=== PATIENT | male | born 1975 | race Caucasian/White ===

== ENCOUNTER → 2016-07-15 | Outpatient (CLI) | payer OTHER ==
[2016-07-15 15:18] LABS: BLOOD UREA NITROGEN 20 MG/DL (7-18); CREATININE FOR GFR 0.95 MG/DL (0.70-1.30); GLOMERULAR FILTRATION RATE > 60.0 (>60)
== END ==
LOC: M LAB 14:20
PROVIDERS: ATTEND Physical Medicine & Rehabilitation
DX: M54.2 Cervicalgia (principal)

== ENCOUNTER 2016-07-20 10:08 | Outpatient (RCR) | payer OTHER | END 2016-07-28 | LOC: M PT 10:08 | PROVIDERS: ATTEND Physical Medicine & Rehabilitation | DX: Z51.89 Encounter for other specified aftercare (principal); M47.892 Other spondylosis, cervical region ==

== ENCOUNTER 2016-07-23 15:50 | Emergency (ER) | payer OTHER ==
--- NOTE | 2016-07-23 16:59 | EDDOCDS ---
Physician Documentation [facility] Name: Shaan Osorio Age: 41 yrs Sex: Male : 1975 Arrival Date: 07/23/2016 Time: 15:50 Bed Triage 1 Private MD: Disposition: 07/23/16 16:44 Discharged to Home/Self Care. Impression: Low back pain - chronic neck pain. - Condition is Stable. - Discharge Instructions: Chronic Back Pain. - Prescriptions for [place] 5- 325 mg Oral Tablet - take 1 tablet by ORAL route every 6 hours As needed MDD: 4 tabs; 16 tablet. - Medication Reconciliation, Local Pharmacy Hours form. - Follow up: [facility]; When: Call to arrange an appointment; Reason: Wound/Symptom Recheck, Recheck today's complaints, Worsening of conditions, Continuance of care. - Problem is chronic. - Symptoms are unchanged. Historical: - Allergies: No known drug Allergies; - Home Meds: 1. Celebrex 200 mg Oral cap 1 cap once daily (Last dose: 07/23/2016 06:00) 2. Ultram 50 mg Oral tab 1 tab twice a day (Last dose: 07/23/2016 06:00) 3. Flexeril 10 mg oral tab 1 tab 3 times per day as needed (Last dose: 07/22/2016) - PMHx: Asthma; Headaches; Bipolar disorder; - PSHx: Carpal Tunnel Repair- Right; - Social history: Smoking status: Patient uses tobacco products, light tobacco smoker. No barriers to communication noted, The patient speaks fluent [place]. - Family history: Not pertinent. - : The pt / caregiver states he / she is not on anticoagulants. Home medication list is obtained from the patient. - Exposure Risk Screening:: None identified. Vital Signs: 07/23 15:53 BP 142 / 83; Pulse 59; Resp 18; Temp 96.6(O); Pulse Ox 100% ; Weight 83.01 kg / 183.01 elp lbs; Height 6 ft. 3 in. (190.50 cm); Pain 10/10; 15:53 Body Mass Index 22.87 (83.01 kg, 190.50 cm) elp MDM: 16:54 [facility] Payment Agreement was scanned into [employer] and attached to record. valerio 16:55 Financial registration complete. valerio Signatures: Jade Nathan, RN RN kpj Tracy Velásquez,RN RN cj Dmitri Riggs PA-C PAViolette cc10 Jewell Viramontes The chart was reviewed and I authenticate all verbal orders and agree with the evaluation and treatment provided.Attachments: 16:54 [facility] Payment Agreement gjaguila MTDD
--- NOTE | 2016-07-23 16:59 | EDDOCDS ---
Nurse's Notes [facility] Name: Shaan Osorio Age: 41 yrs Sex: Male : 1975 Arrival Date: 07/23/2016 Time: 15:50 Bed Triage 1 Private MD: Diagnosis: Low back pain-chronic neck pain Presentation: 07/23 15:56 Presenting complaint: Patient states: has left and left shoulder pain was seen at [facility] 2 days ago had nerve conduction test done left neck and shoulder, since then pain has increased. Pt called ortho and they refused to give him anything else for pain just tramadol BID and celebrex. Risk Factors No acute neurological deficit is noted. Adult Sepsis Screening: The patient does not have new or worsening altered mentation. Patient's respiratory rate is less than 22. Systolic blood pressure is greater than 100. Patient has a qSOFA score of 0- Negative Sepsis Screen. Suicide/Homicide risk assessment- the patient denies having any suicidal and/or homicidal ideations and does not present with any other emotional, behavioral or mental health complaints. Status: Patient is not a services delivery driver or dependent. Transition of care: patient was not received from another setting of care. 15:56 Acuity: SCOTT Level 5 [facility] 15:56 Method Of Arrival: Walkin/Carried/Asstd [facility] Triage Assessment: 16:01 General: Appears well nourished, well groomed, Behavior is appropriate for age, kpj pleasant. Pain: Location: left side of neck Pain currently is 10 out of 10 on a pain scale. Pain radiates to anterior aspect of left shoulder. HIV screening NA for this visit Offered previously. Neurological: Level of Consciousness is awake, alert, Oriented to person, place, time. Respiratory: Airway is patent Respiratory effort is even, unlabored, Respiratory pattern is regular, symmetrical. Derm: Skin is pink, warm & dry. Musculoskeletal: Circulation, motion, and sensation intact Reports pain in left side of neck radiation to anterior aspect of left shoulder Pain is 10 out of 10 on a pain scale. Historical: - Allergies: No known drug Allergies; - Home Meds: 1. Celebrex 200 mg Oral cap 1 cap once daily (Last dose: 07/23/2016 06:00) 2. Ultram 50 mg Oral tab 1 tab twice a day (Last dose: 07/23/2016 06:00) 3. Flexeril 10 mg oral tab 1 tab 3 times per day as needed (Last dose: 07/22/2016) - PMHx: Asthma; Headaches; Bipolar disorder; - PSHx: Carpal Tunnel Repair- Right; - Social history: Smoking status: Patient uses tobacco products, light tobacco smoker. No barriers to communication noted, The patient speaks fluent Trinidadian. - Family history: Not pertinent. - : The pt / caregiver states he / she is not on anticoagulants. Home medication list is obtained from the patient. - Exposure Risk Screening:: None identified. Screenin:54 Screening information is obtained from the patient. Fall risk: No risks identified. [facility] Assistance ADL's: requires no assistance with activities of daily living. Abuse/DV Screen: The patient / caregiver reports he/she is: not in a situation that causes fear, pain or injury. Nutritional screening: No deficits noted. Advance Directives: There is no active DNR order. home support is adequate. Assessment: 16:54 General: Appears in no apparent distress, comfortable, Behavior is appropriate for age, [facility] cooperative. Pain: Location: left arm and anterior aspect of left shoulder and left side of neck and neck. Neurological: Level of Consciousness is awake, alert, Oriented to person, place, time, assessed by PA. Neurological: Gait is steady, Speech is normal, Reports no additional symptoms. Respiratory: Airway is patent Respiratory effort is even, unlabored, Respiratory pattern is regular, symmetrical. Derm: Skin is pink, warm & dry. Vital Signs: 15:53 BP 142 / 83; Pulse 59; Resp 18; Temp 96.6(O); Pulse Ox 100% ; Weight 83.01 kg; Height 6 elp ft. 3 in. (190.50 cm); Pain 10/10; 15:53 Body Mass Index 22.87 (83.01 kg, 190.50 cm) [facility] Vitals: 15:53 Log In Time: July 23, 2016 at 15:51. [facility] ED Course: 15:51 Patient visited by Belle Roldan PCA. elp 15:51 Patient moved to Waiting elp 15:53 Patient visited by Belle Roldan PCA. elp 15:54 Patient moved to Pre RCE elp 16:00 Triage Initiated [facility] 16:26 Patient moved to Triage 1 [facility] 16:29 Dmitri Riggs PA-C is [facility]. cc10 16:29 Hanna Montiel MD is Attending Physician. cc10 16:34 Patient visited by Dmitri Riggs PA-C. cc10 16:34 Patient visited by Dmitri Riggs PA-C. cc 16:44 [facility] is Referral Physician. cc 16:54 [facility] Payment Agreement was scanned into [employer] and attached to record. [facility] 16:54 The patient / caregiver is instructed regarding the plan of care and ED course. [facility] 16:54 No IV's were initiated during this patient's visit. No procedures done that require [facility] assistance. Order Results: There are currently no results for this order. Outcome: 16:44 Discharge ordered by Provider. cc10 16:54 Discharge Assessment: Patient awake, alert and oriented x 3. No cognitive and/or [facility] functional deficits noted. Patient verbalized understanding of disposition instructions. patient administered narcotics - no. The following High Risk Discharge criteria are identified: None. Discharged to home ambulatory. Condition: good Condition: stable Condition: improved. Discharge instructions given to patient, Instructed on discharge instructions, follow up and referral plans. medication usage, no driving heavy equipment, no drinking with medication, Demonstrated understanding of instructions, medications, Pt was receptive of discharge instructions/ teaching. Prescriptions given X 1. No special radiology studies were completed. Property :Personal belongings accompany Pt. 16:57 Patient left the ED. [facility] Signatures: Edward Cook RN CASS [facility] Jade Nathan RN RN Tracy MadsenRN CASS [facility] Belle Roldan, CECELIA VIOLIN TEACHER elp Dmitri Riggs PA-C PA-C cc Jewell Viramontes [facility] MTDD
--- NOTE | 2016-07-25 17:58 | EDDOCDS ---
Physician Documentation [facility] Name: Shaan Osorio Age: 41 yrs Sex: Male : 1975 Arrival Date: 07/23/2016 Time: 15:50 Bed Triage 1 Private MD: Disposition: 07/23/16 16:44 Discharged to Home/Self Care. Impression: Low back pain - chronic neck pain. - Condition is Stable. - Discharge Instructions: Chronic Back Pain. - Prescriptions for [place] 5- 325 mg Oral Tablet - take 1 tablet by ORAL route every 6 hours As needed MDD: 4 tabs; 16 tablet. - Medication Reconciliation, Local Pharmacy Hours form. - Follow up: [facility]; When: Call to arrange an appointment; Reason: Wound/Symptom Recheck, Recheck today's complaints, Worsening of conditions, Continuance of care. - Problem is chronic. - Symptoms are unchanged. Historical: - Allergies: No known drug Allergies; - Home Meds: 1. Celebrex 200 mg Oral cap 1 cap once daily (Last dose: 07/23/2016 06:00) 2. Ultram 50 mg Oral tab 1 tab twice a day (Last dose: 07/23/2016 06:00) 3. Flexeril 10 mg oral tab 1 tab 3 times per day as needed (Last dose: 07/22/2016) - PMHx: Asthma; Headaches; Bipolar disorder; - PSHx: Carpal Tunnel Repair- Right; - Social history: Smoking status: Patient uses tobacco products, light tobacco smoker. No barriers to communication noted, The patient speaks fluent Lithuanian. - Family history: Not pertinent. - : The pt / caregiver states he / she is not on anticoagulants. Home medication list is obtained from the patient. - Exposure Risk Screening:: None identified. Vital Signs: 07/23 15:53 BP 142 / 83; Pulse 59; Resp 18; Temp 96.6(O); Pulse Ox 100% ; Weight 83.01 kg / 183.01 elp lbs; Height 6 ft. 3 in. (190.50 cm); Pain 10/10; 15:53 Body Mass Index 22.87 (83.01 kg, 190.50 cm) elp MDM: 16:54 [facility] Payment Agreement was scanned into [employer] and attached to record. valerio 16:55 Financial registration complete. gjb 07/24 10:53 T-Sheet-- Draft Copy was scanned into [employer] and attached to record. gb Signatures: Jade Nathan, RN RN Ayla Story, Bora Reg Tracy SalesRN RN Dmitri Morrell, PAJasonC PAJasonC cc10 Jewell Viramontes banner The chart was reviewed and I authenticate all verbal orders and agree with the evaluation and treatment provided.Attachments: 07/23 16:54 [facility] Payment Agreement b 07/24 10:53 T-Sheet-- Draft Copy gb Chart Complete MTDD
--- NOTE | 2016-07-25 17:58 | EDDOCDS ---
Physician Documentation [facility] Name: Shaan Osorio Age: 41 yrs Sex: Male : 1975 Arrival Date: 07/23/2016 Time: 15:50 Bed Triage 1 Private MD: Disposition: 07/23/16 16:44 Discharged to Home/Self Care. Impression: Low back pain - chronic neck pain. - Condition is Stable. - Discharge Instructions: Chronic Back Pain. - Prescriptions for [place] 5- 325 mg Oral Tablet - take 1 tablet by ORAL route every 6 hours As needed MDD: 4 tabs; 16 tablet. - Medication Reconciliation, Local Pharmacy Hours form. - Follow up: [facility]; When: Call to arrange an appointment; Reason: Wound/Symptom Recheck, Recheck today's complaints, Worsening of conditions, Continuance of care. - Problem is chronic. - Symptoms are unchanged. Historical: - Allergies: No known drug Allergies; - Home Meds: 1. Celebrex 200 mg Oral cap 1 cap once daily (Last dose: 07/23/2016 06:00) 2. Ultram 50 mg Oral tab 1 tab twice a day (Last dose: 07/23/2016 06:00) 3. Flexeril 10 mg oral tab 1 tab 3 times per day as needed (Last dose: 07/22/2016) - PMHx: Asthma; Headaches; Bipolar disorder; - PSHx: Carpal Tunnel Repair- Right; - Social history: Smoking status: Patient uses tobacco products, light tobacco smoker. No barriers to communication noted, The patient speaks fluent Bahraini. - Family history: Not pertinent. - : The pt / caregiver states he / she is not on anticoagulants. Home medication list is obtained from the patient. - Exposure Risk Screening:: None identified. Vital Signs: 07/23 15:53 BP 142 / 83; Pulse 59; Resp 18; Temp 96.6(O); Pulse Ox 100% ; Weight 83.01 kg / 183.01 elp lbs; Height 6 ft. 3 in. (190.50 cm); Pain 10/10; 15:53 Body Mass Index 22.87 (83.01 kg, 190.50 cm) elp MDM: 16:54 [facility] Payment Agreement was scanned into [employer] and attached to record. valerio 16:55 Financial registration complete. gjb 07/24 10:53 T-Sheet-- Draft Copy was scanned into [employer] and attached to record. gb Signatures: Jade Nathan, RN RN Ayla Story, Bora Reg Tracy SalesRN RN Dmitri Morrell, PAJasonC PAJasonC cc10 Jewell Viramontes [facility] The chart was reviewed and I authenticate all verbal orders and agree with the evaluation and treatment provided.Attachments: 07/23 16:54 [facility] [place] [place] Payment Agreement b 07/24 10:53 T-Sheet-- Draft Copy gb Chart Complete MTDD
--- NOTE | 2016-07-25 17:59 | EDDOCDS ---
Nurse's Notes [facility] Name: Shaan Osorio Age: 41 yrs Sex: Male : 1975 Arrival Date: 07/23/2016 Time: 15:50 Bed Triage 1 Private MD: Diagnosis: Low back pain-chronic neck pain Presentation: 07/23 15:56 Presenting complaint: Patient states: has left and left shoulder pain was seen at [facility] 2 days ago had nerve conduction test done left neck and shoulder, since then pain has increased. Pt called ortho and they refused to give him anything else for pain just tramadol BID and celebrex. Risk Factors No acute neurological deficit is noted. Adult Sepsis Screening: The patient does not have new or worsening altered mentation. Patient's respiratory rate is less than 22. Systolic blood pressure is greater than 100. Patient has a qSOFA score of 0- Negative Sepsis Screen. Suicide/Homicide risk assessment- the patient denies having any suicidal and/or homicidal ideations and does not present with any other emotional, behavioral or mental health complaints. Status: Patient is not a equipment service associate or dependent. Transition of care: patient was not received from another setting of care. 15:56 Acuity: SCOTT Level 5 [facility] 15:56 Method Of Arrival: Walkin/Carried/Asstd [facility] Triage Assessment: 16:01 General: Appears well nourished, well groomed, Behavior is appropriate for age, kpj pleasant. Pain: Location: left side of neck Pain currently is 10 out of 10 on a pain scale. Pain radiates to anterior aspect of left shoulder. HIV screening NA for this visit Offered previously. Neurological: Level of Consciousness is awake, alert, Oriented to person, place, time. Respiratory: Airway is patent Respiratory effort is even, unlabored, Respiratory pattern is regular, symmetrical. Derm: Skin is pink, warm & dry. Musculoskeletal: Circulation, motion, and sensation intact Reports pain in left side of neck radiation to anterior aspect of left shoulder Pain is 10 out of 10 on a pain scale. Historical: - Allergies: No known drug Allergies; - Home Meds: 1. Celebrex 200 mg Oral cap 1 cap once daily (Last dose: 07/23/2016 06:00) 2. Ultram 50 mg Oral tab 1 tab twice a day (Last dose: 07/23/2016 06:00) 3. Flexeril 10 mg oral tab 1 tab 3 times per day as needed (Last dose: 07/22/2016) - PMHx: Asthma; Headaches; Bipolar disorder; - PSHx: Carpal Tunnel Repair- Right; - Social history: Smoking status: Patient uses tobacco products, light tobacco smoker. No barriers to communication noted, The patient speaks fluent South African. - Family history: Not pertinent. - : The pt / caregiver states he / she is not on anticoagulants. Home medication list is obtained from the patient. - Exposure Risk Screening:: None identified. Screenin:54 Screening information is obtained from the patient. Fall risk: No risks identified. [facility] Assistance ADL's: requires no assistance with activities of daily living. Abuse/DV Screen: The patient / caregiver reports he/she is: not in a situation that causes fear, pain or injury. Nutritional screening: No deficits noted. Advance Directives: There is no active DNR order. home support is adequate. Assessment: 16:54 General: Appears in no apparent distress, comfortable, Behavior is appropriate for age, [facility] cooperative. Pain: Location: left arm and anterior aspect of left shoulder and left side of neck and neck. Neurological: Level of Consciousness is awake, alert, Oriented to person, place, time, assessed by PA. Neurological: Gait is steady, Speech is normal, Reports no additional symptoms. Respiratory: Airway is patent Respiratory effort is even, unlabored, Respiratory pattern is regular, symmetrical. Derm: Skin is pink, warm & dry. Vital Signs: 15:53 BP 142 / 83; Pulse 59; Resp 18; Temp 96.6(O); Pulse Ox 100% ; Weight 83.01 kg; Height 6 elp ft. 3 in. (190.50 cm); Pain 10/10; 15:53 Body Mass Index 22.87 (83.01 kg, 190.50 cm) [facility] Vitals: 15:53 Log In Time: July 23, 2016 at 15:51. [facility] ED Course: 15:51 Patient visited by Belle Roldan PCA. elp 15:51 Patient moved to Waiting elp 15:53 Patient visited by Belle Roldan PCA. elp 15:54 Patient moved to Pre RCE elp 16:00 Triage Initiated [facility] 16:26 Patient moved to Triage 1 [facility] 16:29 Dmitri Riggs PA-C is [facility]. cc10 16:29 Hanna Montiel MD is Attending Physician. cc10 16:34 Patient visited by Dmitri Riggs PA-C. cc10 16:34 Patient visited by Dmitri Riggs PA-C. cc10 16:44 [facility] is Referral Physician. cc 16:54 [facility] [place] Payment Agreement was scanned into [employer] and attached to record. gj 16:54 The patient / caregiver is instructed regarding the plan of care and ED course. [facility] 16:54 No IV's were initiated during this patient's visit. No procedures done that require [facility] assistance. 07/24 10:53 T-Sheet-- Draft Copy was scanned into [employer] and attached to record. gb Order Results: There are currently no results for this order. Outcome: 07/23 16:44 Discharge ordered by Provider. cc 16:54 Discharge Assessment: Patient awake, alert and oriented x 3. No cognitive and/or [facility] functional deficits noted. Patient verbalized understanding of disposition instructions. patient administered narcotics - no. The following High Risk Discharge criteria are identified: None. Discharged to home ambulatory. Condition: good Condition: stable Condition: improved. Discharge instructions given to patient, Instructed on discharge instructions, follow up and referral plans. medication usage, no driving heavy equipment, no drinking with medication, Demonstrated understanding of instructions, medications, Pt was receptive of discharge instructions/ teaching. Prescriptions given X 1. No special radiology studies were completed. Property :Personal belongings accompany Pt. 16:57 Patient left the ED. [facility] Signatures: Edward Cook RN RN dwg Jobson, Karen RN CASS Ayla White, Reg Reg Tracy Sales RN RN [facility] Belle Roldan, OIL HEATER OPERATOR OIL HEATER OPERATOR elp Dmitri Riggs PA-C PA-C [facility] Jewell Viramontes [facility] Chart Complete MTDD
== END 2016-07-23 16:57 | disposition home or self-care (01) ==
LOC: M ED 15:50
DX: M54.2 Cervicalgia (principal); G89.29 Other chronic pain; J44.9 Chronic obstructive pulmonary disease, unspecified; J45.909 Unspecified asthma, uncomplicated; F31.9 Bipolar disorder, unspecified; R51 Headache; F17.210 Nicotine dependence, cigarettes, uncomplicated; Z79.899 Other long term (current) drug therapy

== ENCOUNTER 2016-08-20 10:45 | Outpatient (RCR) | payer OTHER | END 2016-08-25 | LOC: M PT 10:45 | PROVIDERS: ATTEND Physical Medicine & Rehabilitation | DX: M47.892 Other spondylosis, cervical region (principal) ==

== ENCOUNTER 2016-08-30 12:03 | Emergency (ER) | payer OTHER ==
[~2016-08-30] VITALS: Ht 190.5 cm; Wt 83.9 kg
[2016-08-30] MEDS ORDERED: SIMV20TA2 PO (12:20)
[2016-08-30] MEDS ORDERED: ULTR50TA PO (12:20)
[2016-08-30] MEDS ORDERED: VITA50003 PO (12:20)
[2016-08-30] MEDS ORDERED: PERCOCET 5MG/325MG TAB PO ONE (13:15)
[2016-08-30] MEDS ORDERED: NORCOTAB PO (14:02)
[2016-08-30 14:11] VITALS: BP 142/87
--- NOTE | 2016-08-30 14:11 | REP ---
LEFT RIB SERIES: Four views of the left ribs are performed and demonstrate no fracture, bone lesion or other significant abnormality. A PA view of the chest is also performed showing mild biapical pleural thickening without acute infiltrate, pleural effusion or pneumothorax. The cardiomediastinal silhouette is normal. IMPRESSION: Negative left rib series. Signed by Edward Hawkins MD 08/30/2016 06:21 P
--- NOTE | 2016-08-30 14:12 | REP ---
LATERAL VIEW CHEST: Single lateral view of the chest is performed and correlated with PA view of the chest performed as part of a left rib series today. There is no acute infiltrate, pleural effusion or pneumothorax identified. Heart is normal in size. Visualized osseous structures appear intact. IMPRESSION: Negative exam. Signed by Edward Hawkins MD 08/30/2016 06:21 P
== END 2016-08-30 14:14 | disposition home or self-care (01) ==
LOC: M ED 13:12
DX: R07.81 Pleurodynia (principal); Z79.899 Other long term (current) drug therapy

== ENCOUNTER 2016-09-13 13:40 | Emergency (ER) | payer OTHER ==
[~2016-09-13] VITALS: Ht 190.5 cm; Wt 86.2 kg
[2016-09-13 13:40] VITALS: BP 133/75
[~2016-09-13 13:40] MED LIST: NORCOTAB PO; SIMV20TA2 PO; ULTR50TA PO; VITA50003 PO
[2016-09-13] MEDS ORDERED: CELE1CAP9 PO (13:53)
[2016-09-13] MEDS ORDERED: NORCO, ANEXSIA 5/325MG TABLET (HYDROcodone/ACETAMINOPHEN) PO ONE (14:30)
== END 2016-09-13 14:40 | disposition home or self-care (01) ==
LOC: M ED 14:03
DX: M54.12 Radiculopathy, cervical region (principal)

== ENCOUNTER 2016-10-02 20:06 | Emergency (ER) | payer OTHER ==
[~2016-10-02] VITALS: Ht 190.5 cm; Wt 86.2 kg
[~2016-10-02 20:06] MED LIST changes: +CELE1CAP9 PO
[2016-10-03] MEDS ORDERED: NAPR500T PO (02:29)
[2016-10-03 02:36] VITALS: BP 124/62
--- NOTE | 2016-10-03 11:08 | REP ---
PA CHEST AND LEFT RIB SERIES: 10/03/2016. Comparison 08/30/2016. Clinical history: Trauma, left chest pain. PA chest. Lungs are well inflated. There is minor apical pleural scarring bilaterally, unchanged. No infiltrate, effusion, atelectasis or mass. Some underlying minor interstitial fibrotic changes are seen. Chest wall jewelry now apparent. The ribs, clavicles, scapula and portions of humeral heads on these images were unremarkable. Left rib series: Four images of the ribs for detailed views showing posterior rib articulations intact. There is no visible or displaced rib fracture, focal rib lesion, pleural effusion or thickening, pneumothorax or other acute finding. Impression: 1. PA chest with no infiltrate, effusion, cardiomegaly or edema. 2. Left ribs without displaced rib fracture or focal lesion, pleural thickening, effusion or pneumothorax. Signed by Juan Crowley MD 10/03/2016 08:22 P
== END 2016-10-03 02:36 | disposition home or self-care (01) ==
LOC: M ED 21:42
DX: R07.89 Other chest pain (principal); F17.210 Nicotine dependence, cigarettes, uncomplicated; Z79.899 Other long term (current) drug therapy; J45.909 Unspecified asthma, uncomplicated

== ENCOUNTER 2016-11-17 16:18 | Emergency (ER) | payer OTHER ==
[~2016-11-17] VITALS: Ht 190.5 cm; Wt 87.5 kg
[2016-11-17 16:18] VITALS: BP 145/88
[~2016-11-17 16:18] MED LIST changes: +NAPR500T PO
[2016-11-17] MEDS ORDERED: traMADol 50 MG TAB PO ONE (17:15)
[2016-11-17] MEDS ORDERED: CELE-19 PO (17:22)
[2016-11-17] MEDS ORDERED: TRAM50TA2 PO (17:25)
== END 2016-11-17 17:46 | disposition home or self-care (01) ==
LOC: M ED 16:32
DX: Z76.0 Encounter for issue of repeat prescription (principal); G89.29 Other chronic pain; M54.2 Cervicalgia; R51 Headache; F17.200 Nicotine dependence, unspecified, uncomplicated; Z79.899 Other long term (current) drug therapy

== ENCOUNTER 2016-11-30 18:08 | Emergency (ER) | payer OTHER ==
[~2016-11-30] VITALS: Ht 190.5 cm; Wt 86.2 kg
[~2016-11-30 18:08] MED LIST changes: +CELE-19 PO; +TRAM50TA2 PO
[2016-11-30] MEDS ORDERED: IBUPOTC PO (18:18)
[2016-11-30] MEDS ORDERED: MORPHINE 2 MG/ML 1ML SYRINGE IM ONE (20:15)
[2016-11-30] MEDS ORDERED: METOCLOPRAMIDE INJ 10MG/2ML VIAL (J2765) IM ONE (20:15)
[2016-11-30 21:10] VITALS: BP 123/87
== END 2016-11-30 21:14 | disposition home or self-care (01) ==
LOC: M ED 19:58
DX: R51 Headache (principal); G43.909 Migraine, unspecified, not intractable, without status migrainosus; G89.29 Other chronic pain; F31.9 Bipolar disorder, unspecified; M50.20 Other cervical disc displacement, unspecified cervical region; Z79.899 Other long term (current) drug therapy

== ENCOUNTER → 2016-12-24 | Outpatient (CLI) | payer OTHER ==
[~2016-12-24] MED LIST changes: -CELE-19 PO; +CELE1CAP4 PO; +IBUPOTC PO; +MEDR4PAK PO; -ULTR50TA PO; +ULTR50TA8 PO; +VITA1CAP40 PO; -VITA50003 PO
[2016-12-24 11:07] LABS: BLOOD UREA NITROGEN 21 MG/DL (7-18); CREATININE FOR GFR 1.06 MG/DL (0.70-1.30); GLOMERULAR FILTRATION RATE > 60.0 (>60)
== END ==
LOC: M LAB 10:15
PROVIDERS: ATTEND Physical Medicine & Rehabilitation
DX: M48.02 Spinal stenosis, cervical region (principal)

== ENCOUNTER → 2017-02-03 | Outpatient (CLI) | payer OTHER ==
[2017-02-03 12:09] LABS: BLOOD UREA NITROGEN 14 MG/DL (7-18); CREATININE FOR GFR 0.88 MG/DL (0.70-1.30); GLOMERULAR FILTRATION RATE > 60.0 (>60)
== END ==
LOC: M LAB 09:29
PROVIDERS: ATTEND Physician Assistant
DX: M50.21 Other cervical disc displacement, high cervical region (principal)

== ENCOUNTER 2017-02-14 20:42 | Emergency (ER) | payer OTHER ==
[~2017-02-14] VITALS: Ht 193 cm; Wt 86.4 kg
[~2017-02-14 20:42] MED LIST changes: -MEDR4PAK PO
[2017-02-14 20:43] VITALS: BP 129/83
[2017-02-14] MEDS ORDERED: predniSONE 20 MG TAB PO ONE (21:15)
[2017-02-14] MEDS ORDERED: MEDR4PAK PO (21:21)
== END 2017-02-14 21:27 | disposition home or self-care (01) ==
LOC: M ED 20:42
DX: M54.2 Cervicalgia (principal); F17.200 Nicotine dependence, unspecified, uncomplicated

== ENCOUNTER → 2017-06-08 | Outpatient (CLI) | payer OTHER ==
[~2017-06-08] MED LIST changes: +MEDR4PAK PO
== END ==
LOC: M LAB 07:29
PROVIDERS: ATTEND Physical Medicine & Rehabilitation
DX: M65.4 Radial styloid tenosynovitis [de Quervain] (principal)

== ENCOUNTER 2017-08-04 13:13 | Emergency (ER) | payer OTHER ==
[2017-08-04] MEDS: IBUPROFEN 800 MG TAB PO (14:31)
[2017-08-04] MEDS: NORCO, ANEXSIA 5/325MG TABLET (HYDROcodone/ACETAMINOPHEN) PO (14:32)
== END 2017-08-04 14:30 | disposition home or self-care (01) ==
LOC: M ED 13:13
DX: S83.92XA Sprain of unspecified site of left knee, initial encounter (principal); M70.42 Prepatellar bursitis, left knee; W19.XXXA Unspecified fall, initial encounter; Y92.099 Unspecified place in other non-institutional residence as the place of occurrence of the external cause; Y93.29 Activity, other involving ice and snow; J45.909 Unspecified asthma, uncomplicated; F17.200 Nicotine dependence, unspecified, uncomplicated; Z79.899 Other long term (current) drug therapy
CPT/HCPCS: 73564

== ENCOUNTER 2017-09-22 19:39 | Emergency (ER) | payer OTHER ==
[2017-09-22] MEDS: NORCO 5/325MG TABLET (BULK FOR ED) PO (21:40)
== END 2017-09-22 21:42 | disposition home or self-care (01) ==
LOC: M ED 19:39
DX: G56.21 Lesion of ulnar nerve, right upper limb (principal); M50.20 Other cervical disc displacement, unspecified cervical region; J45.909 Unspecified asthma, uncomplicated; F17.200 Nicotine dependence, unspecified, uncomplicated; Z79.899 Other long term (current) drug therapy
CPT/HCPCS: 99283

== ENCOUNTER 2017-10-12 18:55 | Emergency (ER) | payer OTHER | END 2017-10-12 21:38 | disposition home or self-care (01) | LOC: M ED 18:55 | DX: Z46.89 Encounter for fitting and adjustment of other specified devices (principal); J45.909 Unspecified asthma, uncomplicated; F31.9 Bipolar disorder, unspecified; F17.200 Nicotine dependence, unspecified, uncomplicated; Z79.899 Other long term (current) drug therapy | CPT/HCPCS: 99284 ==

== ENCOUNTER 2017-10-16 22:50 | Emergency (ER) | payer OTHER ==
[2017-10-17] MEDS: NORCO 5/325MG TABLET (BULK FOR ED) PO (01:45)
[2017-10-17] MEDS: CEPHALEXIN 500 MG CAP PO (01:45)
== END 2017-10-17 01:49 | disposition home or self-care (01) ==
LOC: M ED 22:50
DX: Z48.00 Encounter for change or removal of nonsurgical wound dressing (principal); F17.200 Nicotine dependence, unspecified, uncomplicated; E78.00 Pure hypercholesterolemia, unspecified; J45.909 Unspecified asthma, uncomplicated; F31.9 Bipolar disorder, unspecified
CPT/HCPCS: 99283

== ENCOUNTER 2018-01-16 22:54 | Emergency (ER) | payer OTHER ==
[2018-01-16] MEDS: KETOROLAC TROMETHAMINE 10 MG TAB PO (23:44)
[2018-01-16] MEDS: traMADol 50 MG TAB PO (23:44)
== END 2018-01-17 00:28 | disposition home or self-care (01) ==
LOC: M ED 22:54
DX: G44.221 Chronic tension-type headache, intractable (principal); G89.29 Other chronic pain; M54.2 Cervicalgia; F31.9 Bipolar disorder, unspecified; Z79.899 Other long term (current) drug therapy
CPT/HCPCS: 99282

== ENCOUNTER → 2018-02-09 | Outpatient (CLI) | payer OTHER | LOC: M RAD 13:57 | DX: M51.36 Other intervertebral disc degeneration, lumbar region (principal) | CPT/HCPCS: 72100 ==

== ENCOUNTER 2018-02-25 21:47 | Emergency (ER) | payer OTHER ==
[2018-02-25] MEDS: CYCLOBENZAPRINE 10 MG TAB PO (22:41)
== END 2018-02-25 22:46 | disposition home or self-care (01) ==
LOC: M ED 21:47
DX: S39.012A Strain of muscle, fascia and tendon of lower back, initial encounter (principal); X58.XXXA Exposure to other specified factors, initial encounter; Y92.89 Other specified places as the place of occurrence of the external cause; M41.9 Scoliosis, unspecified; G89.29 Other chronic pain; J45.909 Unspecified asthma, uncomplicated; G47.33 Obstructive sleep apnea (adult) (pediatric); F31.9 Bipolar disorder, unspecified; E78.70 Disorder of bile acid and cholesterol metabolism, unspecified; F17.210 Nicotine dependence, cigarettes, uncomplicated; Z79.899 Other long term (current) drug therapy
CPT/HCPCS: 99282

== ENCOUNTER 2018-03-02 10:06 | Outpatient (RCR) | payer OTHER | END 2018-03-27 | LOC: M PT 10:06 | DX: Z51.89 Encounter for other specified aftercare (principal); M54.5 Low back pain | CPT/HCPCS: 97010 ==

== ENCOUNTER → 2018-04-27 | Outpatient (CLI) | payer OTHER | LOC: M RAD 07:14 | DX: M51.36 Other intervertebral disc degeneration, lumbar region (principal) | CPT/HCPCS: 72148 ==

== ENCOUNTER 2018-05-21 23:58 | Emergency (ER) | payer OTHER ==
[2018-05-22] MEDS: METHOCARBAMOL 500 MG TAB PO (02:30)
[2018-05-22] MEDS: NORCO 5/325MG TABLET (BULK FOR ED) PO (02:31)
[2018-05-22] MEDS: CelecoXIB (CeleBREX) 100 MG CAP PO (02:38)
== END 2018-05-22 02:48 | disposition home or self-care (01) ==
LOC: M ED 23:58
DX: G89.29 Other chronic pain (principal); M54.5 Low back pain; Z79.899 Other long term (current) drug therapy; F17.210 Nicotine dependence, cigarettes, uncomplicated
CPT/HCPCS: 99282

== ENCOUNTER 2018-06-16 19:42 | Emergency (ER) | payer OTHER ==
[2018-06-16] MEDS: diazePAM 5 MG TAB PO (23:18)
[2018-06-16] MEDS: predniSONE 20 MG TAB PO (23:19)
== END 2018-06-16 23:24 | disposition home or self-care (01) ==
LOC: M ED 19:42
DX: M54.40 Lumbago with sciatica, unspecified side (principal)
CPT/HCPCS: 99283

== ENCOUNTER → 2019-04-12 | Outpatient (REF) | payer OTHER, MEDICAID ==
[~2019-04-12] MED LIST changes: +COMBAER6 INH; +CYCL10TA PO; +HYDR-3715 PO; +IBUP-359; +IBUP200T45 PO; +IBUP80TA PO; +KEFL500C17 PO; +KETO10TAB PO; +METH1TAB40; +NAPR-837 PO; -NAPR500T PO; -NORCOTAB PO; +PRED20TA; +PRED20TA PO; +ROBA500T PO; +TIZA4CAP; +TRAM50TA2; +TYLE325T5 PO; +VALI5TAB PO; -VITA1CAP40 PO; +VITA50005 PO
[2019-04-12 12:35] LABS: BASO # 0.1 10^3/uL (0.0-0.2); BASO % 1.5 % (0.0-1.0); EOS # 0.3 10^3/uL (0.0-0.5); EOS % 3.7 % (0.0-3.0); HEMATOCRIT 39.2 % (42.0-52.0); HEMOGLOBIN 13.7 g/dl (13.5-17.5); LYMPH # 2.9 10^3/uL (1.5-5.0); LYMPH % 42.4 % (24.0-44.0); MEAN CORPUSCULAR HEMOGLOBIN 31.6 pg (27.0-33.0); MEAN CORPUSCULAR HGB CONC 34.9 g/dl (32.0-36.5); MEAN CORPUSCULAR VOLUME 90.5 fl (80.0-96.0); MONO # 0.6 10^3/uL (0.0-0.8); MONO % 8.5 % (0.0-5.0); NEUTROPHILS % 43.3 % (36.0-66.0); PLATELET COUNT, AUTOMATED 227 10^3/uL (150-450); RED BLOOD COUNT 4.33 10^6/uL (4.30-6.10); WHITE BLOOD COUNT 6.8 10^3/uL (4.0-10.0)
[2019-04-12 13:09] LABS: ALBUMIN 3.7 GM/DL (3.2-5.2); ALT/SGPT 20 U/L (12-78); BILIRUBIN,TOTAL 0.4 MG/DL (0.2-1.0); BLOOD UREA NITROGEN 14 MG/DL (7-18); CARBON DIOXIDE LEVEL 28 MEQ/L (21-32); CHLORIDE LEVEL 105 MEQ/L (98-107); CHOLESTEROL LEVEL 153 MG/DL (<200); CHOLESTEROL RISK RATIO 3.477 (<5); CREATININE FOR GFR 1.03 MG/DL (0.70-1.30); GLOMERULAR FILTRATION RATE > 60.0 (>60); GLUCOSE, FASTING 91 MG/DL (70-100); HDL CHOLESTEROL 44 MG/DL (>40); LDL CHOLESTEROL 86 MG/DL (<100); NON-HDL-C 109 MG/DL; POTASSIUM SERUM 4.3 MEQ/L (3.5-5.1); SODIUM LEVEL 139 MEQ/L (136-145); TOTAL PROTEIN 6.4 GM/DL (6.4-8.2); TRIGLYCERIDES LEVEL 115 MG/DL (<150)
[2019-04-12 13:19] LABS: HEMOGLOBIN A1c 5.6 %
== END ==
LOC: M LAB REF 12:14
PROVIDERS: ATTEND Nurse Practitioner Family
DX: Z00.01 Encounter for general adult medical examination with abnormal findings (principal); E78.5 Hyperlipidemia, unspecified

== ENCOUNTER 2019-12-22 18:43 | Emergency (ER) | payer MEDICAID, OTHER ==
[~2019-12-22] VITALS: Ht 195.6 cm; Wt 82.7 kg
[~2019-12-22 18:43] MED LIST changes: +CYCL-707 PO; -CYCL10TA PO; -SIMV20TA2 PO; +SIMV20TA22 PO
[2019-12-22] MEDS ORDERED: OMEP-218 PO (20:15)
[2019-12-22] MEDS ORDERED: LEVO25TA5 PO (20:15)
[2019-12-22] MEDS ORDERED: DULO1CAP4 PO (20:15)
[2019-12-22] MEDS ORDERED: LIDOCAINE 5% (LIDODERM) PATCH TD ONE (20:45)
[2019-12-22] MEDS ORDERED: **NOTE PATIENT COMMENT** MISC XX SCH (21:00)
[2019-12-22] MEDS ORDERED: LIDO5DIS41 TOP (22:00)
[2019-12-22] MEDS ORDERED: methocarbamoL 750 MG TAB PO ONE (22:00)
[2019-12-22 22:06] VITALS: BP 138/87
== END 2019-12-22 22:09 | disposition home or self-care (01) ==
LOC: M ED 18:43
DX: M54.5 Low back pain (principal); E03.9 Hypothyroidism, unspecified; J45.909 Unspecified asthma, uncomplicated; E78.00 Pure hypercholesterolemia, unspecified; F17.218 Nicotine dependence, cigarettes, with other nicotine-induced disorders

== ENCOUNTER → 2020-02-13 | Outpatient (REF) | payer OTHER, MEDICAID ==
[~2020-02-13] MED LIST changes: +DULO1CAP4 PO; +LEVO25TA5 PO; +LIDO5DIS41 TOP; +OMEP-218 PO
[2020-04-02 12:08] LABS: BASO # 0.1 10^3/uL (0.0-0.2); BASO % 1.2 % (0.0-1.0); EOS # 0.2 10^3/uL (0.0-0.5); EOS % 3.2 % (0.0-3.0); HEMATOCRIT 40.9 % (42.0-52.0); HEMOGLOBIN 14.3 g/dl (13.5-17.5); LYMPH % 27.5 % (24.0-44.0); MEAN CORPUSCULAR HEMOGLOBIN 32.4 pg (27.0-33.0); MEAN CORPUSCULAR VOLUME 92.7 fl (80.0-96.0); MONO # 0.6 10^3/uL (0.0-0.8); NEUTROPHILS # 4.3 10^3/uL (1.5-8.5); NEUTROPHILS % 59.4 % (36.0-66.0); PLATELET COUNT, AUTOMATED 237 10^3/uL (150-450); RED BLOOD COUNT 4.41 10^6/uL (4.30-6.10); WHITE BLOOD COUNT 7.2 10^3/uL (4.0-10.0)
[2020-04-24 03:26] LABS: BLOOD UREA NITROGEN 20 MG/DL (7-18); CARBON DIOXIDE LEVEL 28 MEQ/L (21-32); CHLORIDE LEVEL 109 MEQ/L (98-107); CREATININE FOR GFR 0.86 MG/DL (0.70-1.30); GLOMERULAR FILTRATION RATE > 60.0 (>60); GLUCOSE, FASTING 95 MG/DL (70-100); POTASSIUM SERUM 4.3 MEQ/L (3.5-5.1); SODIUM LEVEL 141 MEQ/L (136-145)
[2020-04-24 03:27] LABS: ALBUMIN 3.8 GM/DL (3.2-5.2); ALT/SGPT 18 U/L (12-78); BILIRUBIN,TOTAL 0.4 MG/DL (0.2-1.0); CHOLESTEROL LEVEL 175 MG/DL (<200); CHOLESTEROL RISK RATIO 3.977 (<5); FERRITIN 177 NG/ML (26-388); FOLATE 10.7 NG/ML; FREE T4 0.97 NG/DL (0.76-1.46); HDL CHOLESTEROL 44 MG/DL (>40); HEMOGLOBIN A1c 5.4 %; IRON (FE) 86 UG/DL (65-175); LDL CHOLESTEROL 115 MG/DL (<100); MAGNESIUM LEVEL 2.1 MG/DL (1.8-2.4); NON-HDL-C 131 MG/DL; TOTAL 25(OH) VITAMIN D 40.6 NG/ML (30.0-100.0); TOTAL PROTEIN 6.6 GM/DL (6.4-8.2); TRIGLYCERIDES LEVEL 78 MG/DL (<150); VITAMIN B12 LEVEL 312 PG/ML
== END ==
LOC: M LAB REF 10:15
PROVIDERS: ATTEND Nurse Practitioner Family
DX: F17.210 Nicotine dependence, cigarettes, uncomplicated (principal); E03.9 Hypothyroidism, unspecified; M54.5 Low back pain; E78.5 Hyperlipidemia, unspecified; F17.200 Nicotine dependence, unspecified, uncomplicated; Z13.9 Encounter for screening, unspecified; J45.20 Mild intermittent asthma, uncomplicated

== ENCOUNTER 2020-07-28 19:25 | Emergency (ER) | payer OTHER, MEDICAID ==
[~2020-07-28] VITALS: Ht 193 cm; Wt 86.4 kg
--- OUTSIDE RECORDS SUMMARY | 2020-07-28 19:35 | CCD ---
Author Author [facility] Organization [facility] Address Unknown Phone Unavailable Care Team Providers Care Locomotive Driver Name Role Phone ANTECOL, Julian NAVARRETE MD Unavailable Unavailable ANTECOL, Julian NAVARRETE MD Unavailable Unavailable ANTECOL, Julian NAVARRETE MD Unavailable Unavailable ANTECOL, Julian NAVARRETE MD Unavailable Unavailable ANTECOL, Julian NAVARRETE MD Unavailable Unavailable ANTECOL, Julian NAVARRETE MD Unavailable Unavailable ANTECOLJulian MD Unavailable Unavailable ANTECOL, Julian NAVARRETE MD Unavailable Unavailable ANTECOLJulian MD Unavailable Unavailable ANTECOLJulian MD Unavailable Unavailable ANTECOLJulian MD Unavailable Unavailable ANTECOLJulian MD Unavailable Unavailable ANTECOLJulian MD Unavailable Unavailable ANTECOLJulian MD Unavailable Unavailable ANTECOLJulian MD Unavailable Unavailable ANTECOLJulian MD Unavailable Unavailable ANTECOLJulian MD Unavailable Unavailable ANTECOLJulian MD Unavailable Unavailable ANTECOLJulian MD Unavailable Unavailable ANTECOLJulian MD Unavailable Unavailable ANTECOLJulian MD Unavailable Unavailable ANTECOLJulian MD Unavailable Unavailable ANTECOLJulian MD Unavailable Unavailable ANTECOLJulian MD Unavailable Unavailable ANTECOLJulian MD Unavailable Unavailable ANTECOLJulian MD Unavailable Unavailable ANTECOLJulian MD Unavailable Unavailable ANTECOL, Julian NAVARRETE MD Unavailable Unavailable ANTECOLJulian MD Unavailable Unavailable ANTECOLJulian MD Unavailable Unavailable ANTECOL, Julian NAVARRETE MD Unavailable Unavailable ANTECOL, Julian NAVARRETE MD Unavailable Unavailable ANTECOL, Julian NAVARRETE MD Unavailable Unavailable ANTECOL, Julian NAVARRETE MD Unavailable Unavailable ANTECOL, Julian NAVARRETE MD Unavailable Unavailable ANTECOL, Julian NAVARRETE MD Unavailable Unavailable ANTECOL, Julian NAVARRETE MD Unavailable Unavailable ANTECOL, Julian NAVARRETE MD Unavailable Unavailable ANTECOL, Julian NAVARRETE MD Unavailable Unavailable ANTECOL, Julian NAVARRETE MD Unavailable Unavailable ANTECOL, Julian NAVARRETE MD Unavailable Unavailable ANTECOL, Julian NAVARRETE MD Unavailable Unavailable ANTECOL, Julian NAVARRETE MD Unavailable Unavailable ANTECOL, Julian NAVARRETE MD Unavailable Unavailable ANTECOL, Julian NAVARRETE MD Unavailable Unavailable ANTECOL, Julian NAVARRETE MD Unavailable Unavailable ANTECOL, Julian NAVARRETE MD Unavailable Unavailable ANTECOL, Julian NAVARRETE MD Unavailable Unavailable ANTECOL, Julian NAVARRETE MD Unavailable Unavailable ANTECOL, Julian NAVARRETE MD Unavailable Unavailable ANTECOL, Julian NAVARRETE MD Unavailable Unavailable ANTECOL, Julian NAVARRETE MD Unavailable Unavailable ANTECOL, Julian NAVARRETE MD Unavailable Unavailable ANTECOL, Julian NAVARRETE MD Unavailable Unavailable ANTECOL, Julian NAVARRETE MD Unavailable Unavailable Allen, Rubi REPAIR SPECIALIST REPAIR SPECIALIST Unavailable Unavailable Allen, F Rubi REPAIR SPECIALIST-BC Unavailable Unavailable Allen, F Rubi REPAIR SPECIALIST-BC Unavailable Unavailable Allen, F Rubi REPAIR SPECIALIST-BC Unavailable Unavailable Allen, F Rubi REPAIR SPECIALIST-BC Unavailable Unavailable Allen, F Rubi REPAIR SPECIALIST-BC Unavailable Unavailable Allen, F Rubi REPAIR SPECIALIST-BC Unavailable Unavailable Allen, F Rubi REPAIR SPECIALIST-BC Unavailable Unavailable Allen, F Rubi REPAIR SPECIALIST-BC Unavailable Unavailable Allen, F Rubi REPAIR SPECIALIST-BC Unavailable Unavailable Allen, F Rubi REPAIR SPECIALIST-BC Unavailable Unavailable Allen, F Rubi REPAIR SPECIALIST-BC Unavailable Unavailable Allen, F Rubi REPAIR SPECIALIST-BC Unavailable Unavailable Allen, F Rubi REPAIR SPECIALIST-BC Unavailable Unavailable Allen, F Rubi REPAIR SPECIALIST-BC Unavailable Unavailable Allen, F Rubi REPAIR SPECIALIST-BC Unavailable Unavailable Allen, F Rubi REPAIR SPECIALIST-BC Unavailable Unavailable Allen, F Rubi REPAIR SPECIALIST-BC Unavailable Unavailable Allen, F Rubi REPAIR SPECIALIST-BC Unavailable Unavailable Allen, F Rubi REPAIR SPECIALIST-BC Unavailable Unavailable Allen, F Rubi REPAIR SPECIALIST-BC Unavailable Unavailable Allen, F Rubi REPAIR SPECIALIST-BC Unavailable Unavailable Allen, F Rubi REPAIR SPECIALIST-BC Unavailable Unavailable Arvind, Payton REPAIR SPECIALIST REPAIR SPECIALIST Unavailable Unavailable Arvind, A Payton REPAIR SPECIALIST Unavailable Unavailable Arvind, A Payton REPAIR SPECIALIST Unavailable Unavailable Arvind, A Payton REPAIR SPECIALIST Unavailable Unavailable Arvind, A Payton REPAIR SPECIALIST Unavailable Unavailable Arvind, A Payton REPAIR SPECIALIST Unavailable Unavailable Arvind, A Payton REPAIR SPECIALIST Unavailable Unavailable Arvind, A Payton REPAIR SPECIALIST Unavailable Unavailable Arvind, A Payton REPAIR SPECIALIST Unavailable Unavailable Arvind, A Payton REPAIR SPECIALIST Unavailable Unavailable Arvind, A Payton REPAIR SPECIALIST Unavailable Unavailable Arvind, A Payton REPAIR SPECIALIST Unavailable Unavailable Arvind, A Payton REPAIR SPECIALIST Unavailable Unavailable Arvind, A Payton REPAIR SPECIALIST Unavailable Unavailable Arvind, A Payton REPAIR SPECIALIST Unavailable Unavailable Arvind, A Payton REPAIR SPECIALIST Unavailable Unavailable Arvind, A Payton REPAIR SPECIALIST Unavailable Unavailable Arvind, A Payton REPAIR SPECIALIST Unavailable Unavailable Arvind, A Payton REPAIR SPECIALIST Unavailable Unavailable Arvind, A Payton REPAIR SPECIALIST Unavailable Unavailable Arvind, A Payton REPAIR SPECIALIST Unavailable Unavailable Arvind, A Payton REPAIR SPECIALIST Unavailable Unavailable Arvind, A Payton REPAIR SPECIALIST Unavailable Unavailable Arvind, A Payton REPAIR SPECIALIST Unavailable Unavailable Arvind, A Payton REPAIR SPECIALIST Unavailable Unavailable Arvind, A Payton REPAIR SPECIALIST Unavailable Unavailable Arvind, A Payton REPAIR SPECIALIST Unavailable Unavailable Arvind, A Payton REPAIR SPECIALIST Unavailable Unavailable Arvind, A Payton REPAIR SPECIALIST Unavailable Unavailable Re-disclosure Warning The records that you are about to access may contain information from federally-assisted alcohol or drug abuse programs. If such information is present, then the following federally mandated warning applies: This information has been disclosed to you from records protected by federal confidentiality rules (42 CFR part 2). The federal rules prohibit you from making any further disclosure of this information unless further disclosure is expressly permitted by the written consent of the person to whom it pertains or as otherwise permitted by 42 CFR part 2. A general authorization for the release of medical or other information is NOT sufficient for this purpose. The Federal rules restrict any use of the information to criminally investigate or prosecute any alcohol or drug abuse patient.The records that you are about to access may contain highly sensitive health information, the redisclosure of which is protected by Article 27-F of the [facility] Public Health law. If you continue you may have access to information: Regarding HIV / AIDS; Provided by facilities licensed or operated by the [facility] Office of Mental Health; or Provided by the [facility] Office for People With Developmental Disabilities. If such information is present, then the following [facility] mandated warning applies: This information has been disclosed to you from confidential records which are protected by state law. State law prohibits you from making any further disclosure of this information without the specific written consent of the person to whom it pertains, or as otherwise permitted by law. Any unauthorized further disclosure in violation of state law may result in a fine or long-term sentence or both. A general authorization for the release of medical or other information is NOT sufficient authorization for further disc losure. Family History Family Member Name Family Member Gender Family Member Status Date o f Status Description Data Source(s) Unknown Unknown Problem [facility] ([facility]) Unknown Male Problem [facility] ([facility]) Unknown Male Problem [facility] ([facility]) Unknown Male Problem [facility] ([facility]) Unknown Male Problem [facility] ([facility]) Encounters Encounter Providers Location Date Indications Data Source(s ) [facility]:1 4:02 PM EDT [facility] Outpatient Attender: DIANNE Samuels [facility] 04/13/2020 03:14:00 P M EDT [facility] Outpatient Attender: Payton Samuels [facility] 03/30/2020 09:1 2:01 PM EDT [facility]2020 09:12:01 P M EDT [facility] Outpatient Attender: Payton Samuels [facility] 03/30/2020 12:2 6:59 PM EDT [facility]2020 01:14:01 P M EDT [facility] Outpatient Attender: LANDON VELA MD Main Office 03/05/2020 02:30:00 PM EDT [facility] ([facility]) [facility]: [facility]2020 04:10:02 A M EDT [facility] Outpatient Attender: Payton Samuels [facility] 02/14/2020 04:1 0:01 AM EDT [facility]13[facility]2020 09:54:00 A M EDT [facility]13[facility]2020 09:04:00 A M EDT [facility] Outpatient Attender: DIANNE DEAN [facility] 02/12/2020 12:24:[address] [facility]patient Attender: DIANNE DEAN FP 02/12/2020 12:12:00 PM EDT [facility] Outpatient Attender: DIANNE DEAN FP 02/12/2020 12:00:07 PM EDT [facility] Outpatient Attender: DIANNE DEAN FP 02/12/2020 10:57:[address] [facility] Attender: DIANNE DEAN FP 02/12/2020 10:48:00 AM EDT [facility] Outpatient Attender: DIANNE DEAN FP 02/12/2020 10:47:[address] [facility] Outpatient Attender: DIANNE DEAN FP 02/12/2020 10:46:[address] [facility] Attender: DIANNE DEAN FP 02/01/2020 08:03:00 AM EDT [facility] Outpatient Attender: DIANNE DEAN FP 12/27/2019 09:19:01 AM EDT [facility] Outpatient Attender: DIANNE DEAN FP 12/27/2019 09:14:00 AM EDT [facility] Outpatient Attender: Rubi ELLIS FP 12/25/2019 11: 16:01 AM EDT [facility] Outpatient Attender: Rubi ELLIS FP 10/17/2019 11: 39:01 AM EDT [facility] Outpatient Attender: DIANNE DEAN FP 10/17/2019 11:11:00 AM EDT [facility] Outpatient Attender: DIANNE DEAN FP 07/21/2019 09:29:38 AM EST [facility] Outpatient Attender: DIANNE DEAN FP 07/10/2019 03:30:[address] [facility]patient Attender: DIANNE DEAN FP 07/04/2019 02:56:01 PM EST [facility] Outpatient Attender: DIANNE DEAN FP 06/16/2019 07:56:01 AM EST [facility] Medications Medication Brand Name Start Date Product Form Dose Route Admi nistrative Instructions Pharmacy Instructions Status Indications Reaction Description Data Source(s) tramadol hydrochloride 50 MG Oral Tablet Tramadol HCL 03/04/2020 12:00:00 AM EDT ORAL active [facility] ([facility] Omeprazole 20 MG Delayed Release Oral Capsule Omeprazole 03/04/2020 12:00:00 AM EDT ORAL active [facility] ([facility]) Simvastatin 20 MG Oral Tablet Simvastatin 03/04/2020 12:00:00 AM EDT ORAL active [facility] ([facility]) 0.3 ML Epinephrine 1 MG/ML Auto-Injector [Epipen] Epipen 2-P ak 03/04/2020 12:00:00 AM EDT active M EDENT ([facility]) 200 ACTUAT Albuterol 0.09 MG/ACTUAT Metered Dose Inhal er [Ventolin] Ventolin HFA 03/04/2020 12:00:00 AM EDT RESPIRATORY active [facility] ([facility]) Levothyroxine Sodium 0.025 MG Oral Tablet [Synthroid] Synthr oid 03/04/2020 12:00:00 AM EDT ORAL active M EDENT ([facility]) Insurance Providers Payer name Policy type / Coverage type Policy ID Covered democrat ID Covered democrat's relationship to perez Policy Perez Plan Information [facility] [id number] SP [id number] EMEDNY [id number] SP [id number] Managed Care - [facility] Community Plan P [id number] S [id number] Medicaid S [id number] S [id number] Managed Care - [facility] Community Plan P [id number] S [id number] Medicaid S [id number] S [id number] [facility] [id number] SP [id number] [facility] [id number] SP [id number] Managed Care - [facility] Community Plan P [id number] S [id number] Managed Care - [facility] Community Plan P [id number] S [id number] MEDICAID [id number] SP [id number] Medicaid S [id number] S [id number] [facility] Health Maintenance Organization (HMO) [id number] Self [id number] [facility] (pr) Medigap Part B [id number] Self [id number] [facility] Community Plan Medigap Part B [id number] Self [id number] [facility] Community Plan Commercial [id number] Self [id number] [facility] Community Plan Medigap Part B [id number] Self [id number] Managed Care - Community Plan [facility] P [id number] S [id number] [place] (pr) Medigap Part B [id number] Self [id number] [facility] Community Plan Medigap Part B [id number] Self [id number] Managed Care - Community Plan [facility] P [id number] S [id number] [place] (pr) Medigap Part B [id number] Self [id number] [facility] Community Plan Medigap Part B [id number] Self [id number] [facility] Health Maintenance Organization (HMO) [id number] Self [id number] [place] (pr) Medigap Part B [id number] Self [id number] [facility] Community Plan Medigap Part B [id number] Self [id number] [facility]) O [id number] S [id number] [place] (pr) Medigap Part B [id number] Self [id number] [facility] Community Plan Medigap Part B [id number] Self [id number] [place] (pr) Medigap Part B [id number] Self [id number] [facility] Community Plan Medigap Part B [id number] Self [id number] [place] (pr) Medigap Part B [id number] Self [id number] [facility] Community Plan Medigap Part B [id number] Self [id number] Medicaid S [id number] S [id number] [place] (pr) Medigap Part B [id number] Self [id number] [facility] Community Plan Medigap Part B [id number] Self [id number] Managed Care - Community Plan [facility] P [id number] S [id number] [place] (pr) Medigap Part B [id number] Self [id number] [facility] Community Plan Medigap Part B [id number] Self [id number] [facility] MCDHMO [id number] SP [id number] [place] (pr) Medigap Part B [id number] Self [id number] [facility] Community Plan Medigap Part B [id number] Self [id number] [place] (pr) Medigap Part B [id number] Self [id number] [facility] Community Plan Medigap Part B [id number] Self [id number] [place] (pr) Medigap Part B [id number] Self [id number] [facility] Community Plan Medigap Part B [id number] Self [id number] [place] (pr) Medigap Part B [id number] Self [id number] [facility] Community Plan Medigap Part B [id number] Self [id number] [place] (pr) Medigap Part B [id number] Self [id number] [facility] Community Plan Medigap Part B [id number] Self [id number] [place] (pr) Medigap Part B [id number] Self [id number] [facility] Community Plan Medigap Part B [id number] Self [id number] [place] (pr) Medigap Part B [id number] Self [id number] [facility] Community Plan Medigap Part B [id number] Self [id number] [place] (pr) Medigap Part B [id number] Self [id number] [facility] Community Plan Medigap Part B [id number] Self [id number] [place] (pr) Medigap Part B [id number] Self [id number] [facility] Community Plan Medigap Part B [id number] Self [id number] Managed Care - Community Plan [facility] P [id number] S [id number] Medicaid S [id number] S [id number] [facility] Community Plan Commercial [id number] Self [id number] [facility] Community Plan Commercial [id number] Self [id number] [facility] Community Plan Commercial [id number] Self [id number] [facility] Community Plan Commercial [id number] Self [id number] [facility] Community Plan Medigap Part B [id number] Self [id number] [facility] Community Plan Commercial Self [facility] COMMUNITY PLAN MCDO [id number] SP [id number] UN[facility] COMMUNITY PLAN MCDO [id number] SP [id number] MEDICAID SUKI [id number] S [id number] [facility] MEDICAID SUKI HMO [id number] S [id number] [facility]) P UNAVAILABLE S UNAVAILABLE SELF PAY SP UNAVAILABLE S UNAVAILA BLE [facility] MEDICAID SUKI HMO [id number] S [id number] Problems, Conditions, and Diagnoses Code Display Name Description Problem Type Effective Dates Data Source(s) 745844981 Pure hypercholesterolemia Pure hypercholesterolemia Pr oblem 03/05/2020 12:00:00 AM KALEN THAO ([facility]) [id number] Counseling about tobacco use Counseling about tobacco use Problem 03/05/2020 12:00:00 AM EDT [facility] ([facility]) [id number] Tobacco user Tobacco user Problem 03/05/2020 12:00:00 A M EDT [facility] ([facility]) [id number] Severe sinus bradycardia Severe sinus bradycardia Prob carmelita 03/05/2020 12:00:00 AM EDT [facility] ([facility]) 995.3 Other allergy, subsequent encounter Other allergy, sub sequent encounter 02/14/2020 04:08:48 AM EDT [facility] R00.1 Bradycardia, unspecified Bradycardia, unspecified 02/12/2020 11:58:48 AM EDT [facility] [id number] Nicotine dependence, cigarettes, uncompl icated Nicotine dependence, cigarettes, uncomplicated 02/12/2020 11:58:48 AM EDT [facility] Surgeries/Procedures Procedure Description Date Indications Data Source(s) ECG ROUTINE ECG W/LEAST 12 LDS W/I&R 03/05/2020 12:00: 00 AM EDT [facility] ([facility]) Results ID Date Data Source [id number] 02/13/2020 09:28:45 AM EDT [facility] Vital SignsLabs In-House Urine TestsDate /Time Collected: February 13, 2020 8:15 AMTest Result Reference Range Normal ValueRadha Joshi, February 13, 2020 9:29 AMBlood TestsDate/Time Collected: February 13, 2020 8:15 AMTest Result Reference Range Normal ValueComments: taken from left ac, tolerated well.Radha Joshi, February 13, 2020 9:29 AMAssessment & Plan Orders:[id number] Vst-Est Level I [CPT-40928] 66596 - Venipuncture [CPT-46598] Vital SignsPulse Rate: 51 beats/minuteRespiratory Rate: 14 respirations/minuteBlood Pressure: 125/78 Vital Signs performed by: Radha Joshi, February 13, 2020 10:04 AMVital Signs performed by: Radha Joshi, February 13, 2020 10:04 AM Name Value Range Interpretation Code Description Data Kaylie rce(s) Supporting Document(s) ID Date Data Source [id number] 02/13/2020 08:15:00 AM EDT [facility] Name Value Range Interpretation Code Description Data Kaylie rce(s) Supporting Document(s) HCT 40.9 % 42.0-52.0 L [facility] HGB 14.3 g/dL 13.5-17.5 N [facility] MCH 35.0 G/DL pg 32.0-36.5 N [facility] MCHC 32.4 PG % 27.0-33.0 N [facility] PLATELETS 237 10 10*3/mm3 150-450 N [facility] RBC 4.41 10 10*6/mm3 4.30-6.10 N [facility] RDW 11.9 % 11.5-14.5 N [facility] WBC TOTAL 7.2 4.0-10.0 N [facility] ID Date Data Source [id number] 02/13/2020 08:15:00 AM EDT [facility] Name Value Range Interpretation Code Description Data Kaylie rce(s) Supporting Document(s) URINECULTRTN NO GROWTH N [facility] ID Date Data Source [id number] 02/12/2020 10:46:44 AM EDT [facility] Measurements & CalculationsHeight: 76 inches (6 ft. 4 in.) 193.04 cm Weight: 185 pounds 2 oz. 84.15 kg Body Mass Index (BMI): 22.62BMI Interpretation: Healthy WeightBody Surface Area (BSA): 2.15Weight Management Education Done (Nutrition/Physical Activity)Vital SignsTemperature: 97.7FPulse Rate: 49 beats/minuteRespiratory Rate: 14 respirations/minuteBlood Pressure: 122/80 O2 Saturation: 100% Vital Signs performed by: Mihaela Argueta LPN, February 12, 2020 10:54 AMVital Signs performed by: Mihaela Argueta LPN, February 12, 2020 10:54 AMInitial Intake Information From: patientRoom #: 9Infectious Disease / Travel ScreeningRecent travel for you or any close contacts? NoHave you had any close contact with anyone diagnosed with or under investigation for COVID-19 (coronavirus)? NoFever? NoRespiratory symptoms: cough, cold, congestion, shortness of breath, difficulty breathing? NoLoss of smell? NoLoss of taste? NoSmoking, Tobacco, Vaping or Smoke Exposure StatusSmoke Status: current some day smokerTobacco Use: YesAdv to Quit: YesDo you vape? NoPassive Smoke Exposure: YesHealthcare HistorySince your last office visit...Have you been admitted to the hospital? NoHave you been to an emergency room (ER) or urgent care clinic? NoHave you seen another healthcare provider? Yes - OrthoHave you seen a dentist? Yes - [facility] DentalIntake performed by: Mihaela Argueta LPN, February 12, 2020 10:55 AMRate Your HealthIn general, would you say your health is? Very GoodPain AssessmentAre you currently having any pain which... You would like your provider to address? No Affects your activity level? NoDepression Screening - PHQ-2Over the last two weeks, have you... Had little interest or pleasure in doing things? Not at all Been feeling down, depressed, or hopeless? Not at all PHQ-2 Score: 0Anxiety Screening - PEREZ-2Over the last two weeks, have you been... Feeling nervous, anxious, or on edge? Not at all Unable to stop or control worrying? Not at all PEREZ-2 Score: 0Food InsecurityWithin the past year...Did you worry whether your food would run out before you got money to buy more? NoWas there a time when the food you bought didn't last and you didn't have money to get more? NoScreening, Brief Intervention, & Referral to Treatment (SBIRT)Pre-Screening Questions How many times have you have 5 or more drinks in a day? 0How many times have you used an illegal drug or used a prescription medication for a non-medical reason? 0Performed by: Mihaela Argueta LPN, February 12, 2020 10:58 AMPatient History Medical History:ADHDbipolarhigh cholesterolbulging discs in neckScoliosisSurgical History:carpal tunnel rt handRt ElbowSocial/Personal History: Age of First Use: 14Advised to Quit/Tobacco Education: YesChief Complaintfollow-up visit epi pen room 9History of Present Illness (HPI)44 YO male here for follow up , needs refiil on Epi pens and Ventolin. Pt states healthy diet and physical activities. Pt states taking all his medications without side effects. Pt states follows by ortho for chronic low back pain. Pt staes allergy to bee sting and other allegens. Requesting refill of epi pen. HPI performed by: Payton DEAN, February 12, 2020 11:35 AMTransitions of Care InboundProblem ReviewProblem List was reviewed and/or updated during this visit.Medication Reconciliation & ReviewMedication List was reviewed and/or updated during this visit, including review of any [id number] medications, herbal therapies, and/or supplements.Allergy ReviewAllergy List was reviewed and/or updated during this visit.Adult Preventive CareProvider Calculated and Reviewed all Clinical Protocols for patient today. Screening Tobacco Screening: Smoking Status: current some day smoker (02/12/2020) Tobacco Use: Currently (02/12/2020) Advised to Quit: Yes (02/12/2020)Labs/Meds/Other Counseling-Nutrition and Physical Activity:BMI Interpretation: Healthy Weight (02/12/2020) Counseling: Done (02/12/2020) Physical Activity: Done (02/12/2020)Review of Systems General: Denies loss of appetite, chills, dizziness, fatigue, fever, continued fever, headache, feeling ill, sweats, night sweats, sleep disturbances, weight loss. Eyes: Denies blurring of vision, double vision, irritation, discharge, vision loss, eye pain, eye swelling, droopy eyelid, sensitivity to light, redness, itching. Ears/Nose/Throat: Denies earache, ear discharge, ringing in ears, decreased hearing, nasal congestion, nosebleeds, runny nose, sore throat, hoarseness, difficulty swallowing, dry mouth, tooth pain, bleeding gums, swollen glands. Cardiovascular: Denies chest pain, palpitations, feeling faint, trouble breathing w/exertion, SOB upon lying down, SOB at night, peripheral edema, elevated blood pressure, decreased heart rate. Respiratory: Denies cough, difficulty breathing, shortness of breath, excessive sputum, coughing up blood, wheezing, chest pain. Gastrointestinal: Denies nausea, vomiting, bleeding, burning, itching, irritation, cramps, diarrhea, constipation. Genitourinary: Denies urinary incontinence, pain with urination, burning with urination, urinary frequency, urinary hesitancy, urinary urgency, urinary urgency at night, incomplete emptying, blood in urine. Musculoskeletal: Denies back pain, joint pain, leg pain, other pain-see comments, joint swelling, body aches, muscle aches, muscle cramps, muscle weakness, stiffness, recent injury. Neurologic: Denies muscle impairment, weakness, numbness/tingling, seizures, slurred speech, feeling faint, tremors, vertigo, paralysis on one side, paralysis on both sides. Psychiatric: Denies depression, anxiety, memory loss, mental disturbance, suicidal ideation, homicidal ideation, hallucinations, paranoia, feeling stressed, hearing voices. Endocrine: Denies cold intolerance, heat intolerance, excessive thirst, excessive hunger, excessive urination, weight loss, weight gain. Care Management Plan Transitions of CareInboundRate Your HealthIn general, would you say your health is? Very GoodAssessment & Plan Problems:Added: Bradycardia, unspecified (WAJ82-D89.1) Assessment: Heart rate low today at 49. Pt denies chest pain dizziness or other symptoms of bradycardia. pt is a current everyday smoker. 12 lead ekg ordered. Instructions: 12 lead EKG ordered.Nicotine dependence, cigarettes, uncomplicated (MYZ26-I83.210) Assessment: Instructions: Please try to cut back on your c igarette smoking with a goal to quit. Please let us know if you need additional assistance in doing so.Bradycardia, unspecified (URT13-L74.1) Assessment: 12 lead EKG done. Referral made to cardiology for additional evalBradycardia, unspecified (EEK16-O82.1) Assessment: Instructions: We have made a referral for you today. We will contact you to set this up.Other allergy, subsequent encounter (ICD-995.3) (AMC47-B63.49xD) Assessment: Instructions: epi pen refilled for you today.Assessed:Low back pain (ICD-724.2) (BDV90-Z73.5) Assessment: follows by orthopedic. Instructions: Please continue to follow up with your interactive media specialist as scheduled.Hypothyroidism, unspecified (ICD10- E03.9) Assessment: Instructions: Thyroid levels ordered today. Please continue medication as prescribed.Health Screening (ICD-V70.0) (FFK65-K17.9) Assessment: Instructions: Fasting labs ordered.Patient Instructions/Care Plan: Low back pain: Please continue to follow up with your orthopedic specia list as scheduled.Hypothyroidism- unspecified: Thyroid levels ordered today. Please continue medication as prescribed.Bradycardia- unspecified: 12 lead EKG ordered.Nicotine dependence- cigarettes- uncomplicated: Please try to cut back on your cigarette smoking with a goal to quit. Please let us know if you need additional assistance in doing so.Bradycardia- unspecified: We have made a referral for you today. We will contact you to set this up.Health Screening: Fasting labs ordered.Other allergy- subsequent encounter: epi pen refilled for you today. Plan developed in collaboration with patient and/or familyMedications:SYNTHROID 25 MCG ORAL TABLETACE WRIST BRACE DELUXE LEFTOMEPRAZOLE 20 MG ORAL CAPSULE DELAYED RELEASEEPIPEN 2-DENA 0.3 MG/0.3ML INJECTION SOLUTION AUTO-INJECTORCPAP WITH MASK AND TUBINGSIMVASTATIN 20 MG ORAL TABLETVENTOLIN HFA 108 (90 BASE) MCG/ACT INHALATION AEROSOL SOLUTIONTRAMADOL HCL 50 MG ORAL TABLETMedication Changes:Refilled:EPIPEN 2-DENA 0.3 MG/0.3ML INJECTION SOLUTION [id number] as needed as directed Qty: 2[Prefilled Pen Syrnge] Refills: 2 Method: ElectronicVENTOLIN HFA 108 (90 BASE) MCG/ACT INHALATION AEROSOL SOLUTION-2 puffs by mouth four times per day as needed Qty: 1[Inhalation] Refills: 2 Method: ElectronicChanged:From: INJECTION EPIPEN 2- DENA SOLUTION AUTO-INJECTOR Qty: [id number] Refills: 2[Prefilled Pen Syrnge] To: EPIPEN 2-DENA 0.3 MG/0.3ML INJECTION SOLUTION [id number] as needed as directed Qty: 2[Prefilled Pen Syrnge] Refills: 2Allergies:* BEE STINGS (Critical)Orders:COMP METABOLIC PANEL [CPT-89546] CBC W/DIFF [CPT-19059] HgBA1c [CPT-50316] LIPID PANEL [CPT-70193] TSH [CPT-27534] T-4 free [CPT-31075] Vitamin D 250H Unspecified [CPT-63076] URINALYSIS [CPT-95161] VITAMIN B-12 [CPT-70307] IRON [CPT-37983] FERRITIN [CPT-59893] Folate (Folic Acid Serum) [CPT-20234] Urine Culture [CPT-99182] Magnesium [T40490R,[id number]] Routine ECG with at least 12 leads; with interpretation and report [CPT-11898] Cardiology Consult [CPT- 93791] Adult - Ofc Vst, EST, Level IV [CPT-08877] Follow-Up Return to clinic: 2- 3 weeks for follow up. Clinical Visit Summary CompletedMedications:VENTOLIN HFA 108 (90 BASE) MCG/ACT INHALATION AEROSOL SOLUTION (ALBUTEROL SULFATE) 2 puffs by mouth four times per day as needed #1[Inhalation] x 2 Route:INHALATION Entered and Authorized by: Payton DEAN Method used: Electronically to [facility] (retail) [address] [place] [address] Fax: Note to Pharmacy: Route: INH; RxID: [id number] 2-DENA 0.3 MG/0.3ML INJECTION SOLUTION AUTO-INJECTOR (EPINEPHRINE) use as needed as directed #2[Prefilled Pen Syrnge] x 2 Route:INJECTION Entered and Authorized by: Payton DEAN Method used: Electronically to [facility] (retail) [address] [place] [address] Note to Pharmacy: Route: INJECTION; RxID: [id number] signed by Payton DEAN on 02/14/2020 at 4:08 AM Name Value Range Interpretation Code Description Data Kaylie rce(s) Supporting Document(s) Procedure Vital Signs ID Date Data Source UNK Name Value Range Interpretation Code Description Data Source(s) Diastolic blood pressure--sitting 82 mm[Hg] 82 mm[Hg] [facility] ([facility]) Omron, adult cuff/Ra Systolic blood pressure--sitting 127 mm[Hg] 127 mm[Hg] [facility] ([facility]) Omron, adult cuff/Ra Heart rate 48 /min 48 /min [facility] ([facility]) Body mass index (BMI) [Ratio] 21.8 kg/m2 21.8 k g/m2 [facility] ([facility]) Body height 77 [in_i] 77 [in_i] [facility] ([facility]) 6'5" Body weight 184.00 [lb_av] 184.00 [lb_av] ANANYA T ([facility])
--- OUTSIDE RECORDS SUMMARY | 2020-07-28 21:01 | CCD ---
Author Author [facility] Organization [facility] Address Unknown Phone Unavailable Care Team Providers Care Manager Material Name Role Phone ANTECOL, Julian NAVARRETE MD Unavailable Unavailable ANTECOL, Julian NAVARRETE MD Unavailable Unavailable ANTECOL, Julian NAVARRETE MD Unavailable Unavailable ANTECOL, Julian NAVARRETE MD Unavailable Unavailable ANTECOL, Julian NAVARRETE MD Unavailable Unavailable ANTECOL, Juilan NAVARRETE MD Unavailable Unavailable ANTECOLJulian MD Unavailable [...] Julian NAVARRETE MD Unavailable Unavailable Allen, Rubi GENERAL LABOR FORKLIFT OPERATOR GENERAL LABOR FORKLIFT OPERATOR Unavailable Unavailable Allen, F Rubi GENERAL LABOR FORKLIFT OPERATOR-BC Unavailable Unavailable Allen, F Rubi GENERAL LABOR FORKLIFT OPERATOR-BC Unavailable Unavailable Allen, F Rubi GENERAL LABOR FORKLIFT OPERATOR-BC Unavailable Unavailable Allen, F Rubi GENERAL LABOR FORKLIFT OPERATOR-BC Unavailable Unavailable Allen, F Rubi GENERAL LABOR FORKLIFT OPERATOR-BC Unavailable Unavailable Allen, F Rubi GENERAL LABOR FORKLIFT OPERATOR-BC Unavailable Unavailable Allen, F Rubi GENERAL LABOR FORKLIFT OPERATOR-BC Unavailable Unavailable Allen, F Rubi GENERAL LABOR FORKLIFT OPERATOR-BC Unavailable Unavailable Allen, F Rubi GENERAL LABOR FORKLIFT OPERATOR-BC Unavailable Unavailable Allen, F Rubi GENERAL LABOR FORKLIFT OPERATOR-BC Unavailable Unavailable Allen, F Rubi GENERAL LABOR FORKLIFT OPERATOR-BC Unavailable Unavailable Allen, F Rubi GENERAL LABOR FORKLIFT OPERATOR-BC Unavailable Unavailable Allen, F Rubi GENERAL LABOR FORKLIFT OPERATOR-BC Unavailable Unavailable Allen, F Rubi GENERAL LABOR FORKLIFT OPERATOR-BC Unavailable Unavailable Allen, F Rubi GENERAL LABOR FORKLIFT OPERATOR-BC Unavailable Unavailable Allen, F Rubi GENERAL LABOR FORKLIFT OPERATOR-BC Unavailable Unavailable Allen, F Rubi GENERAL LABOR FORKLIFT OPERATOR-BC Unavailable Unavailable Allen, F Rubi GENERAL LABOR FORKLIFT OPERATOR-BC Unavailable Unavailable Allen, F Rubi GENERAL LABOR FORKLIFT OPERATOR-BC Unavailable Unavailable Allen, F Rubi GENERAL LABOR FORKLIFT OPERATOR-BC Unavailable Unavailable Allen, F Rubi GENERAL LABOR FORKLIFT OPERATOR-BC Unavailable Unavailable Allen, F Rubi GENERAL LABOR FORKLIFT OPERATOR-BC Unavailable Unavailable Arvind, Payton GENERAL LABOR FORKLIFT OPERATOR GENERAL LABOR FORKLIFT OPERATOR Unavailable Unavailable Arvind, A Payton GENERAL LABOR FORKLIFT OPERATOR Unavailable Unavailable Arvind, A Payton GENERAL LABOR FORKLIFT OPERATOR Unavailable Unavailable Arvind, A Payton GENERAL LABOR FORKLIFT OPERATOR Unavailable Unavailable Arvind, A Payton GENERAL LABOR FORKLIFT OPERATOR Unavailable Unavailable Arvind, A Payton GENERAL LABOR FORKLIFT OPERATOR Unavailable Unavailable Arvind, A Payton GENERAL LABOR FORKLIFT OPERATOR Unavailable Unavailable Arvind, A Payton GENERAL LABOR FORKLIFT OPERATOR Unavailable Unavailable Arvind, A Payton GENERAL LABOR FORKLIFT OPERATOR Unavailable Unavailable Arvind, A Payton GENERAL LABOR FORKLIFT OPERATOR Unavailable Unavailable Arvind, A Payton GENERAL LABOR FORKLIFT OPERATOR Unavailable Unavailable Arvind, A Payton GENERAL LABOR FORKLIFT OPERATOR Unavailable Unavailable Arvind, A Payton GENERAL LABOR FORKLIFT OPERATOR Unavailable Unavailable Arvind, A Payton GENERAL LABOR FORKLIFT OPERATOR Unavailable Unavailable Arvind, A Payton GENERAL LABOR FORKLIFT OPERATOR Unavailable Unavailable Arvind, A Payton GENERAL LABOR FORKLIFT OPERATOR Unavailable Unavailable Arvind, A Payton GENERAL LABOR FORKLIFT OPERATOR Unavailable Unavailable Arvind, A Payton GENERAL LABOR FORKLIFT OPERATOR Unavailable Unavailable Arvind, A Payton GENERAL LABOR FORKLIFT OPERATOR Unavailable Unavailable Arvind, A Payton GENERAL LABOR FORKLIFT OPERATOR Unavailable Unavailable Arvind, A Payton GENERAL LABOR FORKLIFT OPERATOR Unavailable Unavailable Arvind, A Payton GENERAL LABOR FORKLIFT OPERATOR Unavailable Unavailable Arvind, A Payton GENERAL LABOR FORKLIFT OPERATOR Unavailable Unavailable Arvind, A Payton GENERAL LABOR FORKLIFT OPERATOR Unavailable Unavailable Arvind, A Payton GENERAL LABOR FORKLIFT OPERATOR Unavailable Unavailable Arvind, A Payton GENERAL LABOR FORKLIFT OPERATOR Unavailable Unavailable Arvind, A Payton GENERAL LABOR FORKLIFT OPERATOR Unavailable Unavailable Arvind, A Payton GENERAL LABOR FORKLIFT OPERATOR Unavailable Unavailable Arvind, A Payton GENERAL LABOR FORKLIFT OPERATOR Unavailable Unavailable Re-disclosure Warning The records that [...] is protected by Article 27-F of the [facility] Public Health law. If you continue you may have access to information: Regarding HIV / AIDS; Provided by facilities licensed or operated by the [facility] Office of Mental Health; or Provided by the [facility] Office for People With Developmental Disabilities. If such information is present, then the following [facility] mandated warning applies: This information has [...] law may result in a fine or retirement sentence or both. A general authorization for the release of medical or other information is NOT sufficient authorization for further disc losure. Family History Family Member Name Family Member Gender Family Member Status Date o f Status Description Data Source(s) Unknown Unknown Problem MEDENT ([facility]) Unknown Male Problem MEDENT ([facility]) Unknown Male Problem MEDENT ([facility]) Unknown Male Problem MED[facility] ([facility]) Unknown Male Problem MEDENT ([facility]) Encounters Encounter Providers Location Date Indications Data Source(s ) [facility] 03:1 4:[address] [facility] Outpatient Attender: DIANNE Samuels [facility] 04/13/2020 03:14:[address] [facility] Outpatient Attender[facility] Payton Samuels [facility] 03/30/2020 09:1 2:[address] [facility] 03/30/2020 09:12:[address] [facility] Outpatient Attender: Payton Samuels [facility] 03/30/2020 12:2 6:[address] [facility] 03/13/2020 01:14:[address] [facility] Outpatient Attender: LANDON VELA MD Main Office 03/05/2020 02:30:00 PM EDT MEDLISA ([facility]) [facility]: [facility] 02/14/2020 04:10:[address] [facility] Outpatient Attender: Payton Samuels [facility] 02/14/2020 04:1 0:[address] [facility] 02/13/2020 09:54:[address] [facility] 02/13/2020 09:04:[address] [facility] Outpatient Attender: DIANNE DEAN [facility] 02/12/2020 12:24:00 PM EDT [facility] Attender: DIANNE DEAN FP 02/12/2020 12:12:[address] [facility] Outpatient Attender: DIANNE DEAN FP 02/12/2020 12:00:[address] [facility] Outpatient Attender: DIANNE DEAN FP 02/12/2020 10:57:00 AM EDT [facility] Attender: DIANNE DEAN [facility] 02/12/2020 10:48:[address] [facility] Outpatient Attender: DIANNE DEAN FP 02/12/2020 10:47:01 AM EDT [facility] Outpatient Attender: DIANNE DEAN FP 02/12/2020 10:46:02 AM EDT [facility] Outpatient Attender: DIANNE DEAN FP 02/01/2020 08:03:[address] [facility] Outpatient Attender: DIANNE DEAN FP 12/27/2019 09:19:[address] [facility] Outpatient Attender: DIANNE DEAN FP 12/27/2019 09:14:[address] [facility] Outpatient Attender: Rubi ELLIS FP 12/25/2019 11: 16:[address] [facility] Outpatient Attender: Rubi ELLIS FP 10/17/2019 11: 39:[address] [facility] Outpatient Attender: DIANNE DEAN FP 10/17/2019 11:11:[address] [facility] Outpatient Attender: DIANNE DEAN FP 07/21/2019 09:29:[address] [facility] Outpatient Attender: DIANNE DEAN FP 07/10/2019 03:30:00 PM EST [facility] Outpatient Attender: DIANNE DEAN FP 07/04/2019 02:56:[address] [facility] Outpatient Attender: DIANNE DEAN FP 06/16/2019 07:56:[address] [facility] Medications Medication Brand Name Start Date Product Form Dose Route Admi nistrative Instructions Pharmacy Instructions Status Indications Reaction Description Data Source(s) tramadol hydrochloride 50 MG Oral Tablet Tramadol HCL 03/04/2020 12:00:00 AM EDT ORAL active [facility] ([facility] Omeprazole 20 MG Delayed Release Oral Capsule Omeprazole 03/04/2020 12:00:00 AM EDT ORAL active [facility] ([facility]) Simvastatin 20 MG Oral Tablet Simvastatin 03/04/2020 12:00:00 AM EDT ORAL active [facility] ([facility]) 0.3 ML Epinephrine 1 MG/ML Auto-Injector [Epipen] Epipen 2-P ak 03/04/2020 12:00:00 AM EDT active M EDENT ([facility]) 200 ACTUAT Albuterol 0.09 MG/ACTUAT Metered Dose Inhal er [Ventolin] Ventolin HFA 03/04/2020 12:00:00 AM EDT RESPIRATORY active [facility] ([facility]) Levothyroxine Sodium 0.025 MG Oral Tablet [Synthroid] Synthr oid 03/04/2020 12:00:00 AM EDT ORAL active M EDENT ([facility]) Insurance Providers Payer name Policy type / Coverage type Policy ID Covered green party ID Covered green party's relationship to perez Policy Perez Plan Information [facility] COMMUNITY PLAN [facility] [id number] SP [id number] EMEDNY [id number] SP [id number] Managed Care - [facility] Community Plan P [id number] S [id number] Medicaid S [id number] S [id number] Managed Care - [facility] Community Plan P [id number] S [id number] Medicaid S [id number] S [id number] [facility] COMMUNITY PLAN [facility] [id number] SP [id number] [facility] COMMUNITY PLAN [facility] [id number] SP [id number] Managed Care - [facility] Community Plan P [id number] S [id number] Managed Care - [facility] Community Plan P [id number] S [id number] MEDICAID [id number] SP [id number] Medicaid S [id number] S [id number] [facility] Health Maintenance Organization (HMO) [id number] Self [id number] [facility] [place] (pr) Medigap Part B [id number] Self [id number] [facility] Community Plan Medigap Part B [id number] Self [id number] [facility] Community Plan Commercial [id number] Self [id number] [facility] Community Plan Medigap Part B [id number] Self [id number] Managed Care - Community Plan [facility] P [id number] S [id number] [place] (pr) Medigap Part B [id number] Self [id number] [facility] Community Plan Medigap Part B [id number] Self [id number] Managed Care - Community Plan [facility] P [id number] S [id number] [place] (pr) Medigap Part B [id number] Self [id number] [facility] Community Plan Medigap Part B [id number] Self [id number] [facility] Health Maintenance Organization (HMO) [id number] Self [id number] [place] (pr) Medigap Part B [id number] Self [id number] [facility] Community Plan Medigap Part B [id number] Self [id number] [facility]) O [id number] S [id number] [place] (pr) Medigap Part B [id number] Self [id number] [facility] Community Plan Medigap Part B [id number] Self [id number] [place] (pr) Medigap Part B [id number] Self [id number] [facility] Community Plan Medigap Part B [id number] Self [id number] [place] (pr) Medigap Part B [id number] Self [id number] [facility] Community Plan Medigap Part B [id number] Self [id number] Medicaid S [id number] S [id number] [place] (pr) Medigap Part B [id number] Self [id number] [facility] Community Plan Medigap Part B [id number] Self [id number] Managed Care - Community Plan [facility] P [id number] S [id number] [place] (pr) Medigap Part B [id number] Self [id number] [facility] Community Plan Medigap Part B [id number] Self [id number] [facility] COMMUNITY PLAN [id number] SP [id number] [place] (pr) Medigap Part B [id number] Self [id number] [facility] Community Plan Medigap Part B [id number] Self [id number] [place] (pr) Medigap Part B [id number] Self [id number] [facility] Community Plan Medigap Part B [id number] Self [id number] [place] (pr) Medigap Part B [id number] Self [id number] [facility] Community Plan Medigap Part B [id number] Self [id number] [place] (pr) Medigap Part B [id number] Self [id number] [facility] Community Plan Medigap Part B [id number] Self [id number] [place] (pr) Medigap Part B [id number] Self [id number] [facility] Community Plan Medigap Part B [id number] Self [id number] [place] (pr) Medigap Part B [id number] Self [id number] [facility] Community Plan Medigap Part B [id number] Self [id number] [place] (pr) Medigap Part B [id number] Self [id number] [facility] Community Plan Medigap Part B [id number] Self [id number] [place] (pr) Medigap Part B [id number] Self [id number] [facility] Community Plan Medigap Part B [id number] Self [id number] [place] (pr) Medigap Part B [id number] Self [id number] [facility] Community Plan Medigap Part B [id number] Self [id number] Managed Care - Community Plan [facility] P [id number] S [id number] Medicaid S [id number] S [id number] [facility] Community Plan Commercial [id number] Self [id number] [facility] Community Plan Commercial [id number] Self [id number] [facility] Community Plan Commercial [id number] Self [id number] [facility] Community Plan Commercial [id number] Self [id number] [facility] Community Plan Medigap Part B [id number] Self [id number] [facility] Community Plan Commercial Self [facility] COMMUNITY PLAN MCDO [id number] SP [id number] [facility] COMMUNITY PLAN MCDO [id number] SP [id number] MEDICAID [id number] [id number] S [id number] [facility] MEDICAID SUKI HMO [id number] S [id number] [facility]) P UNAVAILABLE S UNAVAILABLE SELF PAY SP UNAVAILABLE S UNAVAILA BLE [facility] MEDICAID SUKI HMO [id number] S [id number] Problems, Conditions, and Diagnoses Code Display Name Description Problem Type Effective Dates Data Source(s) 359066368 Pure hypercholesterolemia Pure hypercholesterolemia Pr oblem 03/05/2020 12:00:00 AM KALEN THAO ([facility]) [id number] Counseling about tobacco use Counseling about tobacco use Problem 03/05/2020 12:00:00 AM EDT [facility]) [id number] Tobacco user Tobacco user Problem 03/05/2020 12:00:00 A M EDT [facility] ([facility]) 30647266 Severe sinus bradycardia Severe sinus bradycardia Prob carmelita 03/05/2020 12:00:00 AM EDT MED[facility] ([facility]) 995.3 Other allergy, subsequent encounter Other allergy, sub sequent encounter 02/14/2020 04:08:[address] [facility] R00.1 Bradycardia, unspecified Bradycardia, unspecified 02/12/2020 11:58:[address] [facility] [id number] Nicotine dependence, cigarettes, uncompl icated Nicotine dependence, cigarettes, uncomplicated 02/12/2020 11:58:[address] [facility] Surgeries/Procedures Procedure Description Date Indications Data Source(s) ECG ROUTINE ECG W/LEAST 12 LDS W/I&R 03/05/2020 12:00: 00 AM EDT [facility] ([facility]) Results ID Date Data Source [id number] 02/13/2020 09:28:[address] [facility] Vital SignsLabs In-House Urine TestsDate /Time Collected: February 13, 2020 8:15 AMTest Result Reference Range Normal ValueRadha Joshi, February 13, 2020 9:29 AMBlood TestsDate/Time Collected: February 13, 2020 8:15 AMTest Result Reference Range Normal ValueComments: taken from left ac, tolerated well.Rahda Joshi, February 13, 2020 9:29 AMAssessment & Plan Orders:55085-Fbr Vst-Est Level I [CPT-42093] 66247 - Venipuncture [CPT-72873] Vital SignsPulse Rate: 51 beats/minuteRespiratory Rate: 14 respirations/minuteBlood Pressure: 125/78 Vital Signs performed by: Radha Joshi, February 13, 2020 10:04 AMVital Signs performed by: Radha Joshi, February 13, 2020 10:04 AM Name Value Range Interpretation Code Description Data Kaylie rce(s) Supporting Document(s) ID Date Data Source [id number] 02/13/2020 08:15:[address] [facility] Name Value Range Interpretation Code Description Data Kaylie rce(s) Supporting Document(s) HCT 40.9 % 42.0-52.[address] [facility] HGB 14.3 g/dL 13.5-17.[address] [facility] MCH 35.0 G/DL pg 32.0-36.[address] [facility] MCHC 32.4 PG % 27.0-33.[address] [facility] PLATELETS 237 10 10*3/mm3 150-[address] [facility] RBC 4.41 10 10*6/mm3 4.30-6.[address] [facility] RDW 11.9 % 11.5-14.[address] [facility] WBC TOTAL 7.2 4.0-10.[address] [facility] ID Date Data Source [id number] 02/13/2020 08:15:[address] [facility] Name Value Range Interpretation Code Description Data Kaylie rce(s) Supporting Document(s) URINECULTRTN NO GROWTH N [facility] ID Date Data Source [id number] 02/12/2020 10:46:[address] [facility] Measurements & CalculationsHeight: 76 inches (6 [...] during this visit, including review of any bmdo-tmg-qfgfiji medications, herbal therapies, and/or supplements.Allergy ReviewAllergy List [...] Very GoodAssessment & Plan Problems:Added: Bradycardia, unspecified (FWY65-J74.1) Assessment: Heart rate low today at 49. Pt denies chest pain dizziness or other symptoms of bradycardia. pt is a current everyday smoker. 12 lead ekg ordered. Instructions: 12 lead EKG ordered.Nicotine dependence, cigarettes, uncomplicated (SXX60-T25.210) Assessment: Instructions: Please try to cut back on your c igarette smoking with a goal to quit. Please let us know if you need additional assistance in doing so.Bradycardia, unspecified (CMV96-W47.1) Assessment: 12 lead EKG done. Referral made to cardiology for additional evalBradycardia, unspecified (IDT03-F41.1) Assessment: Instructions: We have made a referral for you today. We will contact you to set this up.Other allergy, subsequent encounter (ICD-995.3) (JVG10-N87.49xD) Assessment: Instructions: epi pen refilled for you today.Assessed:Low back pain (ICD-724.2) (URC34-N71.5) Assessment: follows by orthopedic. Instructions: Please continue to follow up with your senior benefits specialist as scheduled.Hypothyroidism, unspecified (ICD10- E03.9) Assessment: Instructions: Thyroid levels ordered today. Please continue medication as prescribed.Health Screening (ICD-V70.0) (TCS78-J06.9) Assessment: Instructions: Fasting labs ordered.Patient Instructions/Care Plan: [...] TABLETMedication Changes:Refilled:EPIPEN 2-DENA 0.3 MG/0.3ML INJECTION SOLUTION [id number]-[id number] as needed as directed Qty: 2[Prefilled Pen Syrnge] Refills: 2 Method: ElectronicVENTOLIN HFA 108 (90 BASE) MCG/ACT INHALATION AEROSOL SOLUTION-2 puffs by mouth four times per day as needed Qty: 1[Inhalation] Refills: 2 Method: ElectronicChanged:From: INJECTION EPIPEN 2- DENA SOLUTION AUTO-INJECTOR Qty: [phone] Refills: 2[Prefilled Pen Syrnge] To: EPIPEN 2-DENA 0.3 MG/0.3ML INJECTION SOLUTION [id number] as needed as directed Qty: 2[Prefilled Pen Syrnge] Refills: 2Allergies:* BEE STINGS (Critical)Orders:COMP METABOLIC PANEL [CPT-05900] CBC W/DIFF [CPT-79141] HgBA1c [CPT-17020] LIPID PANEL [CPT-00941] TSH [CPT-57793] T-4 free [CPT-69706] Vitamin D 250H Unspecified [CPT-26986] URINALYSIS [CPT-96924] VITAMIN B-12 [CPT-09315] IRON [CPT-30729] FERRITIN [CPT-78473] Folate (Folic Acid Serum) [CPT-44954] Urine Culture [CPT-12371] Magnesium [U25867Q,B244213] Routine ECG with at least 12 leads; with interpretation and report [CPT-02385] Cardiology Consult [CPT- 69577] Adult - Ofc Vst, EST, Level IV [CPT-84205] Follow-Up Return to clinic: 2- 3 weeks for follow up. Clinical Visit Summary CompletedMedications:VENTOLIN HFA 108 (90 BASE) MCG/ACT INHALATION AEROSOL SOLUTION (ALBUTEROL SULFATE) 2 puffs by mouth four times per day as needed #1[Inhalation] x 2 Route:INHALATION Entered and Authorized by: Payton DEAN Method used: Electronically to [facility] (retail) [address] [place] [address] Fax: Note to Pharmacy: Route: INH; RxID: [id number] 2-DENA 0.3 MG/0.3ML INJECTION SOLUTION AUTO-INJECTOR (EPINEPHRINE) use as needed as directed #2[Prefilled Pen Syrnge] x 2 Route:INJECTION Entered and Authorized by: Payton DEAN Method used: Electronically to [facility] (retail) [address] [place] [address] Note to Pharmacy: Route: INJECTION; RxID: [id number] signed by Payton DEAN on 02/14/2020 at 4:08 AM Name Value Range Interpretation Code Description Data Kaylie rce(s) Supporting Document(s) Procedure Vital Signs ID Date Data Source UNK Name Value Range Interpretation Code Description Data Source(s) Diastolic blood pressure--sitting 82 mm[Hg] 82 mm[Hg] [facility] ([facility]) Omron, adult cuff/Ra Systolic blood pressure--sitting 127 mm[Hg] 127 mm[Hg] [facility] ([facility]) Omron, adult cuff/Ra Heart rate 48 /min 48 /min [facility] ([facility]) Body mass index (BMI) [Ratio] 21.8 kg/m2 21.8 k g/m2 [facility] ([facility]) Body height 77 [in_i] 77 [in_i] [facility] ([facility]) 6'5" Body weight 184.00 [lb_av] 184.00 [lb_av] ANANYA T ([facility])
[2020-07-28] MEDS ORDERED: TRAM50TA2 PO (23:07)
[2020-07-28] MEDS ORDERED: traMADol 50 MG TAB PO ONE (23:15)
[2020-07-28 23:19] VITALS: BP 143/85
== END 2020-07-28 23:22 | disposition home or self-care (01) ==
LOC: M ED 19:25
DX: G89.29 Other chronic pain (principal); M54.5 Low back pain; M41.9 Scoliosis, unspecified; Z76.0 Encounter for issue of repeat prescription; J45.909 Unspecified asthma, uncomplicated; M50.20 Other cervical disc displacement, unspecified cervical region; F17.200 Nicotine dependence, unspecified, uncomplicated; Z79.899 Other long term (current) drug therapy

== ENCOUNTER 2020-09-07 16:21 | Emergency (ER) | payer OTHER, MEDICAID ==
[~2020-09-07] VITALS: Ht 190.5 cm; Wt 86.2 kg
[~2020-09-07 16:21] MED LIST changes: +METH-1164; -METH1TAB40
[2020-09-07 16:23] VITALS: BP 131/74
[2020-09-07] MEDS ORDERED: ASPE4PAD TOP (17:00)
[2020-09-07] MEDS ORDERED: LIDOCAINE 5% (LIDODERM) PATCH TD ONE (17:00)
[2020-09-07] MEDS ORDERED: predniSONE 20 MG TAB PO ONE (17:00)
[2020-09-07] MEDS ORDERED: PRED20TA PO (17:00)
[2020-09-07] MEDS ORDERED: methocarbamoL 500 MG TAB PO ONE (17:00)
[2020-09-07] MEDS ORDERED: METH-1164 PO (17:00)
[2020-09-07] MEDS ORDERED: **NOTE PATIENT COMMENT** MISC XX SCH (21:00)
== END 2020-09-07 17:11 | disposition home or self-care (01) ==
LOC: M ED 16:21
DX: G89.29 Other chronic pain (principal); M54.5 Low back pain; E78.5 Hyperlipidemia, unspecified; R51.9 Headache, unspecified; J45.909 Unspecified asthma, uncomplicated; F17.200 Nicotine dependence, unspecified, uncomplicated; Z79.899 Other long term (current) drug therapy

== ENCOUNTER → 2020-09-24 | Outpatient (CLI) | payer OTHER, MEDICAID ==
[~2020-09-24] MED LIST changes: +ASPE4PAD TOP; +METH-1164 PO
--- NOTE | 2020-09-26 00:46 | ECWPNPC ---
PATIENT NAME: JEY MAZARIEGOS : 1975 GENDER: MALE VISIT DATE: 09/24/2020 DISCHARGE DATE: 09/24/20941 VISIT LOCKED DATE TIME: PHYSICIAN: ANGLE SLOAN RESOURCE: ANGLE SLOAN REASON FOR APPOINTMENT 1. NECK/BACK HISTORY OF PRESENT ILLNESS DEPRESSION SCREENING: PHQ-2 (2015 EDITION) LITTLE INTEREST OR PLEASURE IN DOING THINGS?NOT AT ALL FEELING DOWN, DEPRESSED, OR HOPELESS?NOT AT ALL TOTAL SCORE0 45-YEAR-OLD MALE IN FOR INITIAL PAIN CONSULT. PATIENT RATES HIS PAIN AT A 10 OUT OF 10 CURRENTLY AND DESCRIBES IT ACHING, CONTINUOUS, AND STABBING. PATIENT HAS HAD INJECTIONS IN THE PAST AND TRIED DICLOFENAC AND MUSCLE RELAXERS ALL TO NO AVAIL. HE DOES ADMITS TO BEING ON TRAMADOL AND FINDING THAT EFFECTIVE IN MANAGING HIS PAIN SYMPTOMS. HE DENIES HISTORY OF TRAUMA TO THE BACK AREA BUT DOES ADMIT THAT HE WAS DIAGNOSED WITH SCOLIOSIS AND WAS INFORMED AT THE TIME OF DIAGNOSIS THAT THIS WAS THE CAUSE OF HIS BACK PAIN. GENERAL: - - -. FALL RISK SCREENING: SCREENING 2 FALLS WITHOUT INJURY . PAIN SCREENING: PATIENT HAS A COMPLAINT OF ACUTE OR CHRONIC PAIN :YES LOCATION OF PAIN:NECK, LOW BACK, LEG(S) INTENSITY OF PAIN (SCALE OF 1 TO 10):10 WHAT DOES YOUR PAIN FEEL LIKE:ACHING, CONTINOUS, STABBING STABBING AT TIMES DURATION:CONTINOUS PAIN IS INCREASED BY:ACTIVITIES PAIN IS DECREASED BY:OTHERS NOTHING REALLY HELPS THE PAIN RIGHT NOW, HOT SHOWERS, TRAMADOL HAS WORKED IN THE PAST NURSING NOTE: - - -. PAIN CENTER INTAKE QUESTIONS: DO YOU HAVE A HISTORY OF MRSA? :NO DO YOU TAKE A BLOOD THINNERS? :NO DO YOU HAVE ANY BLEEDING DISORDERS? :NO ANY NEW NUMBNESS OR WEAKNESS IN YOUR LEGS OR ARMS? :YES LEGS FEEL WEAK AT TIMES AND FEELS NUMBNESS AND TINGLING IN BIALTERAL FEET ANY PACEMAKER,DEFIBRILLATOR, OR DORSAL COLUMN STIMULATOR? :NO DO YOU HAVE ANY RASHES OR OPEN SORES? :NO ARE YOU ALLERGIC TO IV DYE? :NO ARE YOU DIABETIC? :NO ANY NEW PROBLEMS WITH YOUR MEDICATIONS? :NO HAVE YOU RECEIVED A VACCINE IN THE PAST 30 DAYS? :NO DO YOU PLAN TO RECEIVE A VACCINE IN THE NEXT 21 DAYS? :YES IF SO WHAT VACCINE AND WHEN? WOULD LIKE THE COVID SHOT WHEN IT IS AVAILABLE FOR HIM DO YOU NEED ANY PRESCRIPTION? :YES NEEDS MEDICATION FOR PAIN DO YOU TAKE ANY IMMUNOSUPPRESSIVE MEDICATIONS? :YES PREDNISONE- WEAN DOWN DOSE CURRENT MEDICATIONS TAKING ALBUTEROL SULFATE HFA 108 (90 BASE) MCG/ACT AEROSOL SOLUTION 1 PUFF NEEDED INHALATION QID TAKING DULOXETINE HCL 20 MG CAPSULE DELAYED RELEASE PARTICLES 2 CAPSULES ORALLY DAILY TAKING EPINEPHRINE 0.3 MG/0.3ML SOLUTION PREFILLED SYRINGE DIRECTED INJECTION TAKING LEVOTHYROXINE SODIUM 25 MCG TABLET 1 TABLET IN THE MORNING ON AN EMPTY STOMACH ORALLY ONCE A DAY TAKING MELOXICAM 7.5 MG TABLET 1 TABLET ORALLY BID TAKING METHOCARBAMOL 500 MG TABLET 1 TABLET ORALLY DIRECTED TAKING OMEPRAZOLE 20 MG CAPSULE DELAYED RELEASE 1 CAPSULE 30 MINUTES BEFORE MORNING MEAL ORALLY ONCE A DAY TAKING SIMVASTATIN 20 MG TABLET 1 TABLET IN THE EVENING ORALLY ONCE A DAY TAKING PREDNISONE 1 TAB ORAL , NOTES: ORDERED BY Deborah ESTRADA, WEAN DOWN DOSE DUE TO PAIN NOT-TAKING TRAMADOL HCL 50 MG TABLET 1 TABLET ORALLY EVERY 6 HOURS NEEDED NOT-TAKING KETOROLAC TROMETHAMINE 10 MG TABLET 1 TAB(S) ORALLY EVERY 6 HRS WITH FOOD NOT-TAKING AMOXICILLIN 500 MG CAPSULE 1 CAPSULE ORALLY EVERY 8 HRS PAST MEDICAL HISTORY ROTATOR CUFF DYSFUNCTION BIPOLAR NICOTINE DEPENDENCE ASTHMA/BRONCHITIS GERD POOR DENTATION HYPOTHYROIDISM HYPERLIPIDEMIA GENE LOW BACK PAIN NECK PAIN ALLERGIES BEE VENOM: SWELLING - ALLERGY SURGICAL HISTORY RIGHT HAND CARPAL TUNNEL RIGHT ELBOW SURGERY FAMILY HISTORY FATHER: ALIVE, UNKNOWN MOTHER: ALIVE, DIABETES MELLITUS, HYPERTENSION SIBLINGS: ALIVE, HYPERLIPIDEMIA, HYPERTENSION, CORONARY ARTERY DISEASE 1 BROTHER(S) . 2 SON(S) , 1 DAUGHTER(S) - HEALTHY. DOES NOT HAVE MUCH CONTACT WITH PARENTS- DOES NOT KNOW MUCH OF PARENTAL HISTORY BROTHER- HEART ISSUES, HISTORY OF DRUG ADDICTION. SOCIAL HISTORY GENERAL: TOBACCO USE ARE YOU A:CURRENT SMOKER ARE YOU INTERESTED IN QUITTING?NOT READY TO QUIT COUNSELED THE PATIENT ON SMOKING EFFECTS, EDUCATION [id number]/30/2021 HOW MANY CIGARETTES A DAY DO YOU SMOKE?11-20 HOW SOON AFTER YOU WAKE UP DO YOU SMOKE YOUR FIRST CIGARETTE?6-30 MIN HOW OFTEN DO YOU SMOKE CIGARETTES?EVERY DAY PATIENT COUNSELED ON THE DANGERS OF TOBACCO USE AND URGED TO QUIT:09/24/2020 VAPORNO E-CIGARETTENO LATEX QUESTIONNAIRE LATEX ALLERGY : HAVE YOU EVER DEVELOPED ANY TYPE OF REACTION AFTER HANDLING LATEX PRODUCTS SUCH RUBBER GLOVES, CONDOMS, DIAPHRAGMS, BALLOONS, SOCKS, OR UNDERWEAR?NO LATEX ALLERGY : HAVE YOU EVER DEVELOPED ANY TYPE OF REACTION DURING OR AFTER DENTAL APPOINTMENT, VAGINAL/RECTAL EXAMINATION, SURGICAL PROCEDURE, OR ANY OTHER EXPOSURE?NO LATEX RISK : HAVE YOU EVER HAD ANY DIFFICULTY BREATHING OR HIVES AFTER EATING OR HANDLING ANY FRUITS, OR VEGETABLES; SUCH KIWI, BANANAS, STONE FRUITS, OR CHESTNUTSNO LATEX RISK : DO YOU HAVE A PREVIOUS PERSONAL HISTORY OF MORE THAN NINE SURGERIES, SPINA BIFIDA, OR REPEATED CATHERIZATIONS? NO LATEX RISK : ARE YOU FREQUENTLY EXPOSED TO LATEX PRODUCTS IN YOUR OCCUPATION?NO DATE ASKED : 09/24/2020 ALCOHOL USE: NO. ALCOHOL SCREENING DID YOU HAVE A DRINK CONTAINING ALCOHOL IN THE PAST YEAR?NO POINTS0 INTERPRETATIONNEGATIVE RECREATIONAL DRUG USE DRUG USE?NO PATIENT DENIES ABUSE OR MISSUSED OF ANY MEDICATION DENIES PATIENT DENIES USE OF ANY ILLEGAL SUBSTANCE INCLUDING MARIJUANA OR COCAINE DENIES LANGUAGE LANGUAGES SPOKEN:[place] EDUCATION LEVEL OF EDUCATION:HIGH SCHOOL LEARNING BARRIERS / SPECIAL NEEDS CHANGE FROM LAST VISIT?NO BARRIERS TO LEARNING?YES COMMENTS HAS A HARD TIME READING SOMETIMES HEARING IMPAIRED?NO VISION IMPAIRED?YES :CORRECTIVE LENSES COGNITIVELY IMPAIRED?YES :LEARNING DISABILITY HAS A HARD TIME READING SOMETIMES READINESS TO LEARN?YES LEARNING PREFERENCES?YES :HANDOUTS, DEMONSTRATION/VERBAL INSTRUCTION LEARNING CAPABILITIES PRESENT?YES EMOTIONAL BARRIERS?NO SPECIAL DEVICES?NO DRY CELL BATTERY ASSEMBLER NEEDED?NO DOMESTIC VIOLENCE DO YOU FEEL SAFE IN YOUR ENVIRONMENT?YES DIET: REGULAR. EXERCISE: NO REGULAR EXERCISE. MARITAL STATUS: . OTHERS AT HOME: SPOUSE, CHILDREN, OTHER RELATIVE. HOSPITALIZATION/MAJOR DIAGNOSTIC PROCEDURE NO HOSPITALIZATION HISTORY. REVIEW OF SYSTEMS CONSTITUTIONAL: ANY RECENT FEVER NO . CHILLS NO . WEIGHT CHANGE OF UNKNOWN REASONS NO . MUSCULOSKELETAL: ANY UNUSUAL JOINT PAIN OR SWELLING NOT MENTIONED NO . SYSTEMIC LUPUS NO . ANY NEUROMUSCULAR DISORDER NOT MENTIONED NO . LYME DISEASE NO . GASTROENTEROLOGY: ANY NEW CHANGE IN BOWEL CONTROL? NO . HISTORY OF LIVER DISORDER NOT MENTIONED NO . HISTORY OF UNUSUAL ABDOMINAL PAIN OR CRAMPING NOT MENTIONED NO . NO CONSTIPATION. GENITOURINARY: ANY NEW CHANGE IN BLADDER CONTROL? NO . ANY RENAL/KIDNEY CONDITON NOT MENTIONED NO . NEUROLOGY: HISTORY OF TBI NOT MENTIONED NO . OTHER NEW NUMBNESS OR PAIN PATTERNS NOT MENTIONED NO . NEW ONSET DIZZINESS OR NEUROLOGICAL CHANGES NOT MENTIONED NO . HISTORY OF SEVERE HEADACHES NOT MENTIONED NO . HISTORY OF STROKE OR NEUROLOGICAL DISORDER NOT MENTIONED NO . CARDIOLOGY: HEART SURGERY NO . CONGESTIVE HEART FAILURE/FLUID OVERLOAD NOT MENTIONED NO . HISTORY OF CHEST PAIN,IRREGULAR HEART BEAT NOT MENTIONED NO . RESPIRATORY: SHORTNESS OF BREATH ON EXERTION, WHEEZES, UNUSUAL COUGH NOT MENTIONED NO . ENDOCRINOLOGY: ADRENAL GLAND OR THYROID DISORDERS NOT MENTIONED NO . UNUSUAL URINATION, DIZZINESS OR LETHARGY NOT MENTIONED NO . VITAL SIGNS WT 194.8 LBS, HT 77 IN, BMI 23.10 INDEX, BP 139/84 MM HG, HR 61 /MIN, RR 18 /MIN, TEMP 97.6 F, OXYGEN SAT % 100%, SAFE IN ENV? (Y/N) YES, NA INITIALS AW 0838, REVIEWED BY: Von YOON RN. EXAMINATION GENERAL EXAMINATION: GENERALNO ACUTE DISTRESS, WELL NOURISHED AND HYDRATED. PSYCHAPPROPRIATE MOOD AND AFFECT . LUNGS:CLEAR TO AUSCULTATION BILATERALLY, NO WHEEZES, RHONCHI, RALES. HEART:NO MURMURS, REGULAR RATE AND RHYTHM. BACK:POINT TENDER ALONG LUMBAR SPINE, POSITIVE MODIFIED SLR BILATERALLY . MUSCULOSKELETAL:EQUAL STRENGTH OF THE LOWER EXTREMITIES BILATERALLY . ASSESSMENTS USE OF OPIATES FOR THERAPEUTIC PURPOSES - Z79.891 (PRIMARY) TREATMENT USE OF OPIATES FOR THERAPEUTIC PURPOSES LAB: URINE TEST GROUP ARMAAN SCOTT 09/24/2020 9:29:30 AM > TRAMADOL 07/2020 NOTES: 45-YEAR-OLD MALE IN FOR INITIAL PAIN CONSULT REGARDING NECK AND BACK PAIN. 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 PATIENT WILL HAVE U TOX PERFORMED TODAY AND WILL SIGN A NARCOTIC AGREEMENT WE WILL POTENTIALLY BE PRESCRIBING TRAMADOL FOR THIS PATIENT. PATIENT HAS EXPRESSED UNDERSTANDING OF AND WAS IN AGREEMENT WITH TREATMENT PLAN. GIVEN TIME TO ASK QUESTIONS AND EXPRESS CONCERNS. , ISTOP REGISTRY REVIEWED AND DEMONSTRATES COMPLLIANCE. (REF # ). PROCEDURE CODES FA211 ESTABILISHED PATIENT [facility] CHARGE DISPOSITION & COMMUNICATION FOLLOW UP 2 MONTHS (REASON: BACK AND NECK PAIN) ELECTRONICALLY SIGNED BY DIANNE HAAS ON 09/25/2020 AT 12:43 PM EDT DISCLAIMER : THIS IS A VISIT SUMMARY EXTRACTED FROM THE [employer] CHART. IT IS NOT A COPY OF THE [employer] PROGRESS NOTE. CATHY
== END ==
LOC: M PAIN 08:30
PROVIDERS: ATTEND Family Medicine
DX: G89.29 Other chronic pain (principal); J45.909 Unspecified asthma, uncomplicated; K21.9 Gastro-esophageal reflux disease without esophagitis; E03.9 Hypothyroidism, unspecified; G47.33 Obstructive sleep apnea (adult) (pediatric); F17.210 Nicotine dependence, cigarettes, uncomplicated; Z86.59 Personal history of other mental and behavioral disorders; Z91.030 Bee allergy status; Z79.899 Other long term (current) drug therapy

== ENCOUNTER → 2020-12-18 | Outpatient (CLI) | payer OTHER, MEDICAID ==
--- NOTE | 2020-12-20 02:57 | ECWPNPC ---
PATIENT NAME: JEY MAZARIEGOS : 1975 GENDER: MALE VISIT DATE: 12/18/2020 DISCHARGE DATE: 12/18/20 1409 VISIT LOCKED DATE TIME: PHYSICIAN: ANGLE SLOAN RESOURCE: ANGLE SLOAN REASON FOR APPOINTMENT 1. BACK AND NECK PAIN HISTORY OF PRESENT ILLNESS GENERAL: HPI 45-YEAR-OLD MALE IN FOR CHRONIC PAIN FOLLOW-UP. PATIENT WOULD LIKE TO DISCUSS POTENTIALLY INCREASING THE NUMBER OF TABLETS HE HAS AVAILABLE TO HIM PER MONTH HE EXPERIENCES INCREASED PAIN DURING THE NIGHT SOMETIMES. HE RATES HIS PAIN CURRENTLY AT A 6 OUT OF 10 AND FEELS HIS MEDICATIONS ARE HELPFUL DENYING MED SIDE EFFECTS.. -. FALL RISK SCREENING: SCREENING : NO FALLS REPORTED IN THE LAST YEAR. PAIN SCREENING: PATIENT HAS A COMPLAINT OF ACUTE OR CHRONIC PAIN :YES LOCATION OF PAIN:NECK, LOW BACK INTENSITY OF PAIN (SCALE OF 1 TO 10):6 AVERAGE 6-7 WHAT DOES YOUR PAIN FEEL LIKE:ACHING, TENDER, OTHER PRICKING DURATION:INTERMITTENT, AWAKENS FROM SLEEP PAIN IS INCREASED BY:ACTIVITIES, PROLONGED STANDING PAIN IS DECREASED BY:USE OF PAIN MEDICATIONS, SITTING NURSING NOTE: -. PAIN CENTER INTAKE QUESTIONS: DO YOU HAVE A HISTORY OF MRSA? :NO DO YOU TAKE A BLOOD THINNERS? :NO DO YOU HAVE ANY BLEEDING DISORDERS? :NO ANY NEW NUMBNESS OR WEAKNESS IN YOUR LEGS OR ARMS? :YES LEGS FEEL WEAK AT TIMES AND FEELS NUMBNESS AND TINGLING IN BILATERAL KNEES. ANY PACEMAKER,DEFIBRILLATOR, OR DORSAL COLUMN STIMULATOR? :NO DO YOU HAVE ANY RASHES OR OPEN SORES? :NO ARE YOU ALLERGIC TO IV DYE? :NO ARE YOU DIABETIC? :NO ANY NEW PROBLEMS WITH YOUR MEDICATIONS? :NO HAVE YOU RECEIVED A VACCINE IN THE PAST 30 DAYS? :NO DO YOU PLAN TO RECEIVE A VACCINE IN THE NEXT 21 DAYS? :NO DO YOU NEED ANY PRESCRIPTION? :YES TRAMADOL DO YOU TAKE ANY IMMUNOSUPPRESSIVE MEDICATIONS? :NO CURRENT MEDICATIONS TAKING ALBUTEROL SULFATE HFA 108 (90 BASE) MCG/ACT AEROSOL SOLUTION 1 PUFF NEEDED INHALATION QID TAKING DULOXETINE HCL 20 MG CAPSULE DELAYED RELEASE PARTICLES 2 CAPSULES ORALLY DAILY TAKING EPINEPHRINE 0.3 MG/0.3ML SOLUTION PREFILLED SYRINGE DIRECTED INJECTION TAKING LEVOTHYROXINE SODIUM 25 MCG TABLET 1 TABLET IN THE MORNING ON AN EMPTY STOMACH ORALLY ONCE A DAY TAKING MELOXICAM 7.5 MG TABLET 1 TABLET ORALLY BID TAKING OMEPRAZOLE 20 MG CAPSULE DELAYED RELEASE 1 CAPSULE 30 MINUTES BEFORE MORNING MEAL ORALLY ONCE A DAY TAKING SIMVASTATIN 20 MG TABLET 1 TABLET IN THE EVENING ORALLY ONCE A DAY TAKING TRAMADOL HCL 50 MG TABLET 1 TABLET ORALLY EVERY 12 HOURS NEEDED NOT-TAKING METHOCARBAMOL 500 MG TABLET 1 TABLET ORALLY DIRECTED NOT-TAKING PREDNISONE 1 TAB ORAL , NOTES: ORDERED BY Deborah ESTRADA, WEAN DOWN DOSE DUE TO PAIN NOT-TAKING KETOROLAC TROMETHAMINE 10 MG TABLET 1 TAB(S) ORALLY EVERY 6 HRS WITH FOOD NOT-TAKING AMOXICILLIN 500 MG CAPSULE 1 CAPSULE ORALLY EVERY 8 HRS MEDICATION LIST REVIEWED AND RECONCILED WITH THE PATIENT PAST MEDICAL HISTORY ROTATOR CUFF DYSFUNCTION BIPOLAR NICOTINE DEPENDENCE ASTHMA/BRONCHITIS GERD POOR DENTATION HYPOTHYROIDISM HYPERLIPIDEMIA GENE LOW BACK PAIN NECK PAIN ALLERGIES BEE VENOM: SWELLING - ALLERGY SOCIAL HISTORY GENERAL: TOBACCO USE ARE YOU A:CURRENT SMOKER ARE YOU INTERESTED IN QUITTING?NOT READY TO QUIT COUNSELED THE PATIENT ON SMOKING EFFECTS, EDUCATION [id number]/23/2021 HOW MANY CIGARETTES A DAY DO YOU SMOKE?11-20 HOW SOON AFTER YOU WAKE UP DO YOU SMOKE YOUR FIRST CIGARETTE?6-30 MIN HOW OFTEN DO YOU SMOKE CIGARETTES?EVERY DAY PATIENT COUNSELED ON THE DANGERS OF TOBACCO USE AND URGED TO QUIT:12/18/2020 VAPORNO E-CIGARETTENO LATEX QUESTIONNAIRE LATEX ALLERGY : HAVE YOU EVER DEVELOPED ANY TYPE OF REACTION AFTER HANDLING LATEX PRODUCTS SUCH RUBBER GLOVES, CONDOMS, DIAPHRAGMS, BALLOONS, SOCKS, OR UNDERWEAR?NO LATEX ALLERGY : HAVE YOU EVER DEVELOPED ANY TYPE OF REACTION DURING OR AFTER DENTAL APPOINTMENT, VAGINAL/RECTAL EXAMINATION, SURGICAL PROCEDURE, OR ANY OTHER EXPOSURE?NO LATEX RISK : HAVE YOU EVER HAD ANY DIFFICULTY BREATHING OR HIVES AFTER EATING OR HANDLING ANY FRUITS, OR VEGETABLES; SUCH KIWI, BANANAS, STONE FRUITS, OR CHESTNUTSNO LATEX RISK : DO YOU HAVE A PREVIOUS PERSONAL HISTORY OF MORE THAN NINE SURGERIES, SPINA BIFIDA, OR REPEATED CATHERIZATIONS? NO LATEX RISK : ARE YOU FREQUENTLY EXPOSED TO LATEX PRODUCTS IN YOUR OCCUPATION?NO DATE ASKED : 12/18/2020 ALCOHOL USE: NO. ALCOHOL SCREENING DID YOU HAVE A DRINK CONTAINING ALCOHOL IN THE PAST YEAR?NO POINTS0 INTERPRETATIONNEGATIVE RECREATIONAL DRUG USE DRUG USE?NO PATIENT DENIES ABUSE OR MISSUSED OF ANY MEDICATION DENIES PATIENT DENIES USE OF ANY ILLEGAL SUBSTANCE INCLUDING MARIJUANA OR COCAINE DENIES LANGUAGE LANGUAGES SPOKEN:[place] EDUCATION LEVEL OF EDUCATION:HIGH SCHOOL LEARNING BARRIERS / SPECIAL NEEDS CHANGE FROM LAST VISIT?NO BARRIERS TO LEARNING?YES COMMENTS HAS A HARD TIME READING SOMETIMES HEARING IMPAIRED?NO VISION IMPAIRED?YES :CORRECTIVE LENSES COGNITIVELY IMPAIRED?YES :LEARNING DISABILITY HAS A HARD TIME READING SOMETIMES READINESS TO LEARN?YES LEARNING PREFERENCES?YES :HANDOUTS, DEMONSTRATION/VERBAL INSTRUCTION LEARNING CAPABILITIES PRESENT?YES EMOTIONAL BARRIERS?NO SPECIAL DEVICES?NO ORTHOPHOTO TECH/DRAFTSMAN NEEDED?NO DOMESTIC VIOLENCE DO YOU FEEL SAFE IN YOUR ENVIRONMENT?YES DIET: REGULAR. EXERCISE: NO REGULAR EXERCISE. MARITAL STATUS: . OTHERS AT HOME: SPOUSE, CHILDREN, OTHER RELATIVE. REVIEW OF SYSTEMS CONSTITUTIONAL: ANY RECENT FEVER NO . CHILLS NO . WEIGHT CHANGE OF UNKNOWN REASONS NO . GASTROENTEROLOGY: NEW UNEXPLAINABLE CHANGES IN BOWEL CONTROL NO . CONSTIPATION NO . GENITOURINARY: ANY NEW CHANGE IN BLADDER CONTROL? NO . NEUROLOGY: NEW ONSET DIZZINESS OR NEUROLOGICAL CHANGES NOT MENTIONED NO . NEW NUMBNESS OR PAIN PATTERNS NOT MENTIONED AND PERTINENT TO TODAY'S VISIT NO . CARDIOLOGY: NEW CHEST PRESSURE NO . PATIENT DENIES NO . RESPIRATORY: UNEXPLAINABLE COUGH NO . NEW SHORTNESS OF BREATH NO . VITAL SIGNS WT 194.4 LBS, HT 77 IN, BMI 23.05 INDEX, BP 143/85 MM HG, HR 85 /MIN, RR 18 /MIN, TEMP 99.1 F, OXYGEN SAT % 99%, SAFE IN ENV? (Y/N) YES, NA INITIALS AL 13:47, REVIEWED BY: VANESSA SCOTT MA. EXAMINATION GENERAL EXAMINATION: GENERALNO ACUTE DISTRESS, WELL NOURISHED AND HYDRATED. PSYCHAPPROPRIATE MOOD AND AFFECT . LUNGS:CLEAR TO AUSCULTATION BILATERALLY, NO WHEEZES, RHONCHI, RALES. HEART:NO MURMURS, REGULAR RATE AND RHYTHM. ASSESSMENTS CERVICALGIA - M54.2 (PRIMARY) LUMBAGO - M54.5 TREATMENT CERVICALGIA NOTES: 45-YEAR-OLD MALE IN FOR CHRONIC PAIN FOLLOW-UP. GIVEN PRESENTING SYMPTOMS RECOMMEND INCREASING NUMBER OF TRAMADOL TABLETS TO 75/MONTH AND HIS MDD TO 3. PATIENT UNDERSTANDS THAT HE WILL NOT HAVE ENOUGH MEDICATIONS TO TAKE 3 TIMES DAILY FOR THE WHOLE MONTH HOWEVER HE WILL HAVE ENOUGH MEDICATIONS TO TAKE 3 TIMES DAILY WHEN HE IS EXPERIENCING EXACERBATED PAIN SYMPTOMS. PATIENT HAS EXPRESSED UNDERSTANDING OF AND WAS IN AGREEMENT WITH TREATMENT PLAN. GIVEN TIME TO ASK QUESTIONS AND EXPRESS CONCERNS. ISTOP REGISTRY REVIEWED AND DEMONSTRATES COMPLLIANCE. (REF #[id number] ) BRINGS IN MEDICATIONS WHICH IS APPROPRIATE FOR WHAT WAS DISPENSED. RECENT URINE TOXICOLOGY REVIEWED. NO UNAUTHORIZED MEDICATIONS. NO ILLICIT SUBSTANCES AND PRESCRIBED MEDICATIONS WERE PRESENT. PROCEDURE CODES FA211 ESTABILISHED PATIENT [facility] CHARGE DISPOSITION & COMMUNICATION FOLLOW UP 3 MONTHS (REASON: BACK AND NECK PAIN) ELECTRONICALLY SIGNED BY DIANNE HAAS ON 12/19/2020 AT 01:06 PM EDT DISCLAIMER : THIS IS A VISIT SUMMARY EXTRACTED FROM THE [employer] CHART. IT IS NOT A COPY OF THE [employer] PROGRESS NOTE. CATHY
== END ==
LOC: M PAIN 13:45
PROVIDERS: ATTEND Family Medicine
DX: M54.2 Cervicalgia (principal); M54.5 Low back pain; G89.29 Other chronic pain; K21.9 Gastro-esophageal reflux disease without esophagitis; G47.33 Obstructive sleep apnea (adult) (pediatric); F17.210 Nicotine dependence, cigarettes, uncomplicated; Z86.59 Personal history of other mental and behavioral disorders; Z91.030 Bee allergy status; Z79.899 Other long term (current) drug therapy

== ENCOUNTER 2021-03-01 19:09 | Emergency (ER) | payer OTHER, MEDICAID ==
[~2021-03-01] VITALS: Ht 190.5 cm; Wt 85.7 kg
[2021-03-01 19:10] VITALS: BP 123/79
[2021-03-01] MEDS ORDERED: TRAM50TA2 PO (19:21)
[2021-03-01] MEDS ORDERED: ALBU8.5H PO (19:21)
--- NOTE | 2021-03-01 21:12 | REPVR ---
PROCEDURE INFORMATION: Exam: XR Left Foot Exam date and time: 03/01/2021 7:59 PM Age: 45 years old Clinical indication: Other: Trauma TECHNIQUE: Imaging protocol: XR Left foot. Views: 3 or more views. COMPARISON: CR Knee, complete LEFT 08/04/2017 1:51 PM FINDINGS: Bones/joints: Hallux valgus deformity. Mild dorsal midfoot degenerative change. Otherwise unremarkable. Soft tissues: Normal. IMPRESSION: No acute findings. Electronically signed by: William Lazo On 03/01/2021 21:11:40 PM
== END 2021-03-01 21:30 | disposition home or self-care (01) ==
LOC: M ED 19:09
DX: S90.32XA Contusion of left foot, initial encounter (principal); W20.8XXA Other cause of strike by thrown, projected or falling object, initial encounter; Y92.9 Unspecified place or not applicable; Y93.9 Activity, unspecified; Y99.9 Unspecified external cause status; F17.200 Nicotine dependence, unspecified, uncomplicated

== ENCOUNTER 2021-03-06 20:32 | Emergency (ER) | payer OTHER, MEDICAID ==
[~2021-03-06] VITALS: Ht 190.5 cm; Wt 85.3 kg
[~2021-03-06 20:32] MED LIST changes: +ALBU8.5H PO
[2021-03-06 20:34] VITALS: BP 129/78
[2021-03-06] MEDS ORDERED: MELO15TA28 PO (20:41)
[2021-03-06] MEDS ORDERED: CYCL-707 PO (20:41)
== END 2021-03-07 00:50 | disposition left against medical advice (07) ==
LOC: M ED 20:32
DX: Z53.21 Procedure and treatment not carried out due to patient leaving prior to being seen by health care provider (principal)

== ENCOUNTER → 2021-03-20 | Outpatient (CLI) | payer OTHER, MEDICAID ==
[~2021-03-20] MED LIST changes: +MELO15TA28 PO
== END ==
LOC: M PAIN 13:45
PROVIDERS: ATTEND Anesthesiology
DX: M51.16 Intervertebral disc disorders with radiculopathy, lumbar region (principal); M79.18 Myalgia, other site; J45.909 Unspecified asthma, uncomplicated; K21.9 Gastro-esophageal reflux disease without esophagitis; E03.9 Hypothyroidism, unspecified; G47.33 Obstructive sleep apnea (adult) (pediatric); F17.210 Nicotine dependence, cigarettes, uncomplicated; Z86.59 Personal history of other mental and behavioral disorders; Z91.030 Bee allergy status; Z79.899 Other long term (current) drug therapy

== ENCOUNTER → 2021-11-26 | Outpatient (CLI) | payer OTHER ==
[~2021-11-26] MED LIST changes: -IBUP200T45 PO; +IBUP200T46 PO; +OMEP-173 PO; -OMEP-218 PO
== END ==
LOC: M PAIN 11:45
PROVIDERS: ATTEND Anesthesiology
DX: M51.16 Intervertebral disc disorders with radiculopathy, lumbar region (principal); M79.10 Myalgia, unspecified site; Z79.899 Other long term (current) drug therapy

== ENCOUNTER 2025-04-28 21:42 | Emergency (ER) | payer OTHER ==
[~2025-04-28] VITALS: Ht 190.5 cm; Wt 78.7 kg
[~2025-04-28 21:42] MED LIST changes: +CELE0.09 PO; -CELE1CAP9 PO; +LIDO1ADH93 TOP; -LIDO5DIS41 TOP
[2025-04-28] MEDS ORDERED: BUPR1FIL (22:09)
[2025-04-29 00:25] VITALS: BP 130/75; TEMP 97.3; O2SAT 99
[2025-04-29] MEDS: NEOSPORIN TOP OINT 15 GM TOP ONE (01:25)
[2025-04-29] MEDS: KETOROLAC 60 MG/2 ML VIAL IM ONE (01:30)
== END 2025-04-29 01:30 | disposition home or self-care (01) ==
LOC: M ED 21:42
DX: S53.402A Unspecified sprain of left elbow, initial encounter (principal); S50.312A Abrasion of left elbow, initial encounter; V13.9XXA Unspecified pedal cyclist injured in collision with car, pick-up truck or van in traffic accident, initial encounter; J45.909 Unspecified asthma, uncomplicated; F32.A Depression, unspecified; G47.30 Sleep apnea, unspecified; G56.00 Carpal tunnel syndrome, unspecified upper limb; Y92.410 Unspecified street and highway as the place of occurrence of the external cause; Y93.55 Activity, bike riding; Y99.9 Unspecified external cause status; Z79.899 Other long term (current) drug therapy